=== PATIENT | female | born 1980 | race Caucasian/White ===

== ENCOUNTER 2016-10-05 18:03 | Inpatient (IN) | payer OTHER ==
[~2016-10-05] VITALS: Ht 149.9 cm; Wt 84.1 kg
[2016-10-05 21:15] VITALS: BP 160/82; PULSE 72; RESP 19
[2016-10-05 22:23] VITALS: Ht 149.9 cm; Wt 84.1 kg
[2016-10-05] MEDS: morphine 4 MG/ML VIAL IV PRN (23:07)
[2016-10-05] MEDS: SOD CHLORIDE 0.9% 1,000 ML IV SCH (23:20)
[2016-10-05] MEDS ORDERED: HYDR-906 PO (23:29)
[2016-10-05] MEDS ORDERED: HYDR12.53 PO (23:29)
[2016-10-05] MEDS ORDERED: TAMS0.4C2 PO (23:29)
[2016-10-06] VITALS: BP 140/84
[2016-10-06] MEDS: ONDANSETRON 4 MG INJ IV PRN (00:56)
[2016-10-06 01:53] LABS: BASOPHIL # 0.1 10^3/ul (0.0-0.1); BASOPHILS % 0.8 % (0.0-2.0); EOSINOPHILS # 0.2 10^3/ul (0.0-0.5); EOSINOPHILS % 1.6 % (0.0-7.0); HEMATOCRIT 39.1 % (37.0-47.0); LYMPHOCYTES # 3.1 10^3/ul (0.8-2.9); LYMPHOCYTES % 28.4 % (15.0-51.0); MEAN CORPUSCULAR HEMOGLOBIN 25.2 pg (29.0-33.0); MEAN CORPUSCULAR HGB CONC 33.2 g/dl (32.0-37.0); MEAN PLATELET VOLUME 10.3 fl (7.4-10.4); MONOCYTE # 0.7 10^3/ul (0.3-0.9); MONOCYTES % 6.6 % (0.0-11.0); NEUTROPHIL # 6.7 10^3/ul (1.6-7.5); NEUTROPHILS % 62.6 % (39.0-77.0); PLATELET COUNT 250 10^3/UL (140-440); RED BLOOD COUNT 5.14 10^6/ul (4.20-5.40); RED CELL DISTRIBUTION WIDTH 14.4 % (11.5-14.5); UNCORRECTED WBC 10.7 10^3/ul (4.8-10.8); WHITE BLOOD COUNT 10.7 10^3/ul (4.8-10.8)
[2016-10-06 01:57] LABS: CONDITION 1; LH ANALYZER COMMENTS 1
[2016-10-06 02:07] LABS: ADD UMIC YES; URINE BILIRUBIN (Dip) NEGATIVE (NEGATIVE); URINE BLOOD (Dip) 2+ (NEGATIVE); URINE COLOR LT. YELLOW (YELLOW); URINE GLUCOSE (Dip) NEGATIVE (NEGATIVE); URINE KETONES (Dip) NEGATIVE (NEGATIVE); URINE LEUKOCYTE ESTERASE (Dip) 3+ (NEGATIVE); URINE NITRITE (Dip) NEGATIVE (NEGATIVE); URINE TOTAL PROTEIN (Dip) NEGATIVE (NEGATIVE); URINE UROBILINOGEN (Dip) 0.2 E.U./dL (0.1-1.0)
[2016-10-06 02:14] LABS: BACTERIA,URINE MANY; SQUAMOUS EPITHELIAL CELL,UR MANY
[2016-10-06 02:28] LABS: ALBUMIN 3.8 g/dl (3.3-4.9); POTASSIUM 3.6 mmol/L (3.5-5.1)
[2016-10-06 02:30] LABS: BILIRUBIN,INDIRECT 0.3 mg/dl (0-1.1); BILIRUBIN,TOTAL 0.3 mg/dl (0.2-1.3); CREATININE 0.67 mg/dl (0.44-1.00)
[2016-10-06 02:31] LABS: ALBUMIN/GLOBULIN RATIO 1.26; CALCIUM 8.6 mg/dl (8.4-10.2); PHOSPHORUS 4.1 mg/dl (2.5-4.9); TOTAL PROTEIN 6.8 g/dl (6.1-8.1)
[2016-10-06 02:32] LABS: MAGNESIUM 1.8 mg/dl (1.7-2.5)
[2016-10-06] MEDS: ACETAMINOPHEN 325 MG TAB PO PRN ×2 (04:14→20:16)
[2016-10-06] MEDS: morphine 4 MG/ML VIAL IV PRN (05:38)
[2016-10-06] MEDS: SOD CHLORIDE 0.9% 1,000 ML IV SCH ×3 (06:55→22:23)
[2016-10-06 07:42] VITALS: BP 146/87; RESP 19
[2016-10-06] MEDS: HYDROCHLOROTHIAZIDE 12.5 MG CAP PO SCH (10:06)
[2016-10-06] MEDS: HEPARIN 5,000 UNIT/0.5 ML SYG SC SCH ×2 (10:53→20:21)
[2016-10-06] MEDS: CEFEPIME 2GM/50 ML (PMX) 50 ML IVPB SCH ×2 (11:50→21:25)
[2016-10-06 12:37] LABS: CHOL/HDL RATIO 3.5 RATIO
--- NOTE | 2016-10-06 14:05 | HP ---
DATE OF ADMISSION: 10/05/2016 CHIEF COMPLAINT: Left flank pain. HISTORY OF PRESENT ILLNESS: The patient is a 35-year-old female with a history of hypertension and probable history of kidney stones, ____who presented to an outside hospital with the chief complain t of left flank pain. She states the pain has been going on for about 4 days. She denies ____, n ausea, vomiting, chest pain or shortness of breath. CT abdomen and pelvis ____ 7 mm obstructing sto ne in the right ____ with mild hydronephrosis ____. Also, there was a non-obstructive 15 mm stone in the mid-pole of the right kidney. Also noted on the CAT scan was a bilateral medullary nephrocal cinosis. Again, the patient was transferred to [facility] for a ____ REVIEW OF SYSTEMS: ____ PAST MEDICAL HISTORY: As per HPI. SOCIAL HISTORY: Negative for alcohol or illicit drug use. ALLERGIES: NO KNOWN DRUG ALLERGIES. HOME MEDICATIONS: 1. Flomax. 2. Calhoun. 3. Hydrochlorothiazide. 4. Zocor. 500. PHYSICAL EXAMINATION: VITAL SIGNS: Right arm blood pressure 160/62, heart rate 72, respirations 19, temperature 98.6, O2 saturation 98% on room air. GENERAL: ____ no acute distress. CARDIOVASCULAR: Regular rate and rhythm. ____ LUNGS: Clear. ABDOMEN: There is tenderness of the left flank area. Her abdomen is not distended, no rigidity, th ere are positive bowel sounds. EXTREMITIES: No edema. NEUROLOGIC: No focal deficit. LABORATORY DATA: Basic labs were within acceptable range. IMAGING: CT abdomen and pelvis ____ with results as mentioned in the HPI. IMPRESSION: 1. Obstructing stone in the right UPJ. 2. Left flank pain, probably secondary to above. 3. Hypertension, blood pressure ____. 4. Bilateral ____calcinosis, as noted on the CAT scan. PLAN: She will be put on IV fluids ____ Bilateral medullary nephrocalcinosis ____concerns. The dif ferential diagnosis includes medullary sponge kidney versus right ____ hyperparathyroidism versus __ __. We will consider a nephrology consult. ____ parathyroid hormone and will consider an inpatient nephrology consult. ____ Dictated By: ZOE MAHER/KJ Conf#: [id number] [facility]#: [id number]
--- NOTE | 2016-10-06 14:09 | PN ---
DATE: 10/06/2016 SUBJECTIVE: The patient still having dysuria and subjective fevers. Still waiting to be seen by [facility] urology team. No acute events overnight. OBJECTIVE VITAL SIGNS: Stable. GENERAL: The patient is lying in bed, answering questions, in no acute distress. HEENT: Pupils equal, round, react to light. Extraocular muscles intact. NECK: Supple, no thyromegaly. LUNGS: Clear to auscultation bilaterally. CARDIOVASCULAR: S1, S2 heard. No rubs or gallops. ABDOMEN: She has got positive left CVA tenderness, but otherwise normal bowel sounds. No rebound o r guarding. MUSCULOSKELETAL: No lower extremity edema bilaterally. NEUROLOGIC: No focal deficits. LABORATORY DATA: CMP is normal this morning. The CBC is normal as well. UA shows 3+ leukocyte est erase positive and many bacteria. ASSESSMENT AND PLAN: A 35-year-old female presenting with left flank pain with a prior history of k idney stones who has positive urinary tract infection and findings of 7 mm obstructing stone in the right ureteropelvic junction and right right-sided hydronephrosis. 1. Left flank pain. Paradoxically the patient's stone is found on the right side on her CT scan, s o that is the possible source of the patient's left flank pain. She also has a urinary tract infect ion. Continue antibiotics. Will get a urology consult, IV fluids, pain control medications. Consi yvon checking TSH, A1c, and lipid panel as well. 2. Hypertension. Blood pressure is presently stable. Add hydralazine p.r.n. for systolic greater than 160. 3. High cholesterol. Check a lipid panel. 4. Gastrointestinal prophylaxis. Add proton pump inhibitor. 5. Deep venous thrombosis prophylaxis. Heparin subQ. Dictated By: FATOU SAPP/KJ Conf#: [id number] DID#: [id number]
[2016-10-06] MEDS: KETOROLAC 15 MG INJ IV PRN (15:45)
--- NOTE | 2016-10-06 17:21 | RADRPT ---
PROCEDURE: XR Abdomen. CLINICAL INDICATION: Abdominal pain. History of kidney stones. TECHNIQUE: Supine views of the abdomen were obtained. COMPARISON: None. FINDINGS: The bowel gas pattern is normal. There is no evidence of obstruction. The large bowel is stool-fille d. No free intraperitoneal air is seen. Calcifications are seen projecting over the right renal sha asif. The largest calcification measures 1.5 cm in size. The osseous structures are unremarkable. IMPRESSION: 1. Calcifications projecting over the right renal shadow consistent with the clinical history renal calculi. Further evaluation with a CT renal stone protocol may be of value as clinically warranted . 2. Stool filled large bowel. RPTAT: HPNM Physician Martine Date Time Electronically viewed and signed by Physician Martine on 10/06/2016 17:20 /
[2016-10-06] MEDS: TAMSULOSIN (SR) 0.4 MG CAP PO SCH ×2 (20:16)
[2016-10-06 20:46] VITALS: BP 177/103; RESP 16
[2016-10-06 21:56] VITALS: BP 171/88; RESP 16
[2016-10-06] MEDS: hydrALAzine 20 MG INJ IV PRN (22:22)
[2016-10-07] MEDS: KETOROLAC 15 MG INJ IV PRN (00:33)
[2016-10-07 00:37] VITALS: BP 140/80; PULSE 78; RESP 20
[2016-10-07] MEDS: PANTOPRAZOLE (EC) 40 MG TAB PO SCH (05:29)
[2016-10-07] MEDS: HYDROCODONE/APAP (5/325) TAB PO PRN ×3 (05:29→23:49)
[2016-10-07 05:48] LABS: BASOPHILS % 0.5 % (0.0-2.0); EOSINOPHILS # 0.1 10^3/ul (0.0-0.5); EOSINOPHILS % 1.5 % (0.0-7.0); HEMATOCRIT 40.7 % (37.0-47.0); HEMOGLOBIN 13.6 g/dl (12.0-16.0); LYMPHOCYTES # 3.6 10^3/ul (0.8-2.9); LYMPHOCYTES % 38.4 % (15.0-51.0); MEAN CORPUSCULAR HEMOGLOBIN 25.5 pg (29.0-33.0); MEAN CORPUSCULAR HGB CONC 33.3 g/dl (32.0-37.0); MEAN CORPUSCULAR VOLUME 76.7 fl (82.0-101.0); MEAN PLATELET VOLUME 10.5 fl (7.4-10.4); MONOCYTE # 0.7 10^3/ul (0.3-0.9); MONOCYTES % 7.5 % (0.0-11.0); NEUTROPHIL # 4.9 10^3/ul (1.6-7.5); NEUTROPHILS % 52.1 % (39.0-77.0); PLATELET COUNT 234 10^3/UL (140-440); RED CELL DISTRIBUTION WIDTH 14.6 % (11.5-14.5); UNCORRECTED WBC 9.4 10^3/ul (4.8-10.8); WHITE BLOOD COUNT 9.4 10^3/ul (4.8-10.8)
[2016-10-07 06:00] LABS: CONDITION 1; LH ANALYZER COMMENTS 1
[2016-10-07 06:04] LABS: POTASSIUM 3.8 mmol/L (3.5-5.1)
[2016-10-07 06:06] LABS: CREATININE 0.62 mg/dl (0.44-1.00)
[2016-10-07 06:07] LABS: CALCIUM 8.8 mg/dl (8.4-10.2)
[2016-10-07] MEDS: SOD CHLORIDE 0.9% 1,000 ML IV SCH ×3 (07:00→20:30)
[2016-10-07 08:00] VITALS: BP 139/80; RESP 20
[2016-10-07] MEDS: HYDROCHLOROTHIAZIDE 12.5 MG CAP PO SCH (08:18)
[2016-10-07] MEDS: HEPARIN 5,000 UNIT/0.5 ML SYG SC SCH ×2 (08:26→20:45)
[2016-10-07] MEDS: CEFEPIME 2GM/50 ML (PMX) 50 ML IVPB SCH ×2 (09:17→20:31)
--- NOTE | 2016-10-07 09:56 | CONS ---
DATE OF ADMISSION: 10/05/2016 DATE OF CONSULTATION: 10/06/2016 UROLOGICAL CONSULTATION REQUESTING PHYSICIAN: Dr. Frank Vallecillo Dear Dr. Vallecillo: Thank you for asking me to see this patient in urological consultation. HISTORY OF PRESENT ILLNESS: This is a 35-year-old female who initially presented to the hospital with left flank pain, pain radiating down toward the genital area, urinary urgency. The patient underwent a CT of the abdomen and pelvis. It was reported that she does have a large stone in the right renal pelvis at the ureteropelvic junction, and another stone in the right kidney. However, there were stones in the left kidney and that is where her complaint is. The patient does have a prior history of kidney stones, and she said that she did have one time where the stone was removed through cystoscopy, ureteroscopy, and laser lithotripsy. She does not know the composition of the stones in the past. She is also known to have a history of hypertension and hypercholesterolemia. PAST MEDICAL HISTORY/SURGICAL HISTORY: Includes 2 C-sections. She is a 3, para 3. The first delivery was a vaginal delivery and the last 2 deliveries were C-sections. SOCIAL HISTORY: Smokes. Does not drink any alcohol. There is no history of drug abuse. CURRENT MEDICATIONS: Include: 1. Protonix. 2. Toradol. 3. Hydrochlorothiazide. 4. Cefepime. 5. Heparin subcutaneous. 6. Tylenol. 7. Crook. 8. Tamsulosin. 9. Morphine sulfate. 10. Zofran. 11. IV fluid with sodium chloride. PHYSICAL EXAMINATION: GENERAL: A 35-year-old female. She weighs about 84.1 kg. She is 59 inches tall. VITAL SIGNS: Temperature of 98.1, pulse is 66, respirations 19, blood pressure 146/80. HEAD AND NECK: Unremarkable. There is no cervical adenopathy. HEART: Regular. LUNGS: Clear. ABDOMEN: Obese. She does have a scar from the C-sections in the past. She is tender over the left flank area as well as over to a lesser degree on the right side. PELVIC: No mass and no discharge. EXTREMITIES: Normal. LABORATORY DATA: Her CBC shows a white count of 10.7, hemoglobin is 13.0, hematocrit 39.1. BUN is 10, creatinine 0.67, sodium 141, potassium 3.6, chloride 106, CO2 23. Calcium is 8.6. Urinalysis: 2+ occult blood, 3+ leukocyte esterase, and many bacteria. The review of the report of the CT scan from [place] showed an obstructing 7 mm stone at the right ureteropelvic junction with associated mild right-sided hydronephrosis, nonobstructing 15 mm stone at the mid portion of the right kidney, bilateral medullary nephrocalcinosis. Differential consideration includes medullary sponge kidney, primary hyperparathyroidism, distal RTA, hypervitaminosis D, and hepatic steatosis. IMPRESSION: This patient most likely does have a urinary tract infection with pain on the left side because of the pyelonephritis. The stone on the right side is not causing her any pain according to her, but she has been a little bit tender on that side and there is some hydronephrosis on that side. RECOMMENDATION: To get a KUB, which was done. I ordered the KUB earlier, around noontime today, and they just did it at around 5:30 p.m. The KUB indeed does show the calcification projecting over the right renal shadow consistent with a clinical history of renal calculi; however, on the left side there was no calcification seen. The size of that calcification seen over the right side is about 15mm. I also did order for the patient to have a urine culture just to document if there is any urine infection or pyelonephritis. The patient will have to be treated first for infection, and once the infection is treated then one could take care of the kidney stone, and most likely she will need to undergo ESWL for that kidney stone. I will follow her urological problem with you. I do thank you for allowing me to help in her care. Dictated By: SANDY PHAM/KJ Conf#: [id number] DID#: [id number] MTDD
--- NOTE | 2016-10-07 10:02 | PN ---
Date/Time of Note Date/Time of Note DATE: 10/07/16 TIME: 09:59 Assessment/Plan VTE Prophylaxis VTE Prophylaxis Intervention: heparin Lines/Catheters IV C[facility]ter Type (from [facility]): Peripheral IV Urinary Cath still in place: No Assessment/Plan Chief Complaint/Hosp Course ASSESSMENT AND PLAN: 35-year-old female presenting with left flank pain with a prior history of kidney stones who has positive urinary tract infection and findings of 7 mm obstructing stone in the right ureteropelvic junction and right right-sided hydronephrosis. 1. Left flank pain. Paradoxically the patient's stone is found on the right side on her CT scan, so that is the possible source of the patient's left flank pain. She also has a urinary tract infection. - Continue antibiotics, f/u urology consult rec's - want to continue to strain the urine. - continue IV fluids, pain control medications. 2. Hypertension. Blood pressure is presently stable. - hydralazine p.r.n. for systolic greater than 160. 3. High cholesterol - start Tricor 4. Gastrointestinal prophylaxis -Proton pump inhibitor. 5. Deep venous thrombosis prophylaxis. Heparin subQ. Problems: Subjective 24 Hr Interval Summary Free Text/Dictation Pt with less abd pain, no dysuria. Appears to be passing urinary sediments now. Exam/Review of Systems Vital Signs Vitals Vital Signs Date Time Temp Pulse Resp B/P Pulse Ox O2 Delivery O2 Flow Rate FiO2 10/07/16 08:00 98.6 71 20 139/80 96 10/07/16 00:37 Room Air Intake and Output 10/06/16 10/06/16 10/07/16 15:00 23:00 07:00 Intake Total 1285 ml 950 ml Output Total 2400 ml 1000 ml Balance -1115 ml -50 ml Exam GENERAL: The patient is lying in bed, answering questions, in no acute distress. HEENT: Pupils equal, round, react to light. Extraocular muscles intact. NECK: Supple, no thyromegaly. LUNGS: Clear to auscultation bilaterally. CARDIOVASCULAR: S1, S2 heard. No rubs or gallops. ABDOMEN: She has got positive left CVA tenderness, but otherwise normal bowel sounds. No rebound or guarding. MUSCULOSKELETAL: No lower extremity edema bilaterally. NEUROLOGIC: No focal deficits. Results Result Diagram: 2/18/17 0450 2/18/17 0450 Results 24 hrs Laboratory Tests Test 10/06/16 12:05 10/07/16 04:50 Cholesterol Level 200 Cholesterol/HDL Ratio 3.5 HDL Cholesterol 56 Hemoglobin A1c 5.9 LDL Cholesterol, Calculated 106 Triglycerides Level 192 H Anion Gap 16 Basophils # 0.0 Basophils % 0.5 Blood Morphology Comment Blood Urea Nitrogen 13 Calcium Level 8.8 Carbon Dioxide Level 22 Chloride Level 106 Creatinine 0.62 Eosinophils # 0.1 Eosinophils % 1.5 Glucose Level 91 Hematocrit 40.7 Hemoglobin 13.6 Lymphocytes # 3.6 H Lymphocytes % 38.4 Mean Corpuscular Hemoglobin 25.5 L Mean Corpuscular Hemoglobin Concent 33.3 Mean Corpuscular Volume 76.7 L Mean Platelet Volume 10.5 H Monocytes # 0.7 Monocytes % 7.5 Neutrophils # 4.9 Neutrophils % 52.1 Nucleated Red Blood Cells # 0.0 Nucleated Red Blood Cells % 0.0 Platelet Count 234 Potassium Level 3.8 Red Blood Count 5.30 Red Cell Distribution Width 14.6 H Sodium Level 140 White Blood Count 9.4 Medications Medications Current Medications Morphine Sulfate (morphine) 4 mg Q4H PRN IV PAIN Last administered on 05:38; Admin Dose 4 MG; Start 10/05/16 at 23:00 Ondansetron HCl 4 mg 4 mg Q6H PRN IV NAUSEA AND/OR VOMITING Last administered on 10/06/16 00:56; Admin Dose 4 MG; Start 10/05/16 at 23:00 Sodium Chloride (NS) 1,000 ml @ 125 mls/hr Q8H IV Last administered on 22:23; Admin Dose 125 MLS/HR; Start 10/05/16 at 23:00 Hydrochlorothiazide (Hydrochlorothiazide) 12.5 mg DAILY PO Last administered on 10/07/16 08:18; Admin Dose 12.5 MG; Start 10/06/16 at 09:00 Acetaminophen/ Hydrocodone Bitart ([place] (5/325)) 1 tab Q6H PRN PO PAIN Last administered on 10/07/16 05:29; Admin Dose 1 TAB; Start 10/06/16 at 00:00 Tamsulosin HCl (Flomax) 0.4 mg DAILY@21 PO Last administered on 10/06/16 20:16 ; Admin Dose 0.4 MG; Start 10/06/16 at 00:00 Acetaminophen 650 mg 650 mg Q6H PRN PO PAIN AND OR ELEVATED TEMP Last administered on 10/06/16 20:16; Admin Dose 650 MG; Start 10/06/16 at 04:30 Cefepime HCl (Maxipime 2gm/50 ml (Pmx)) 50 ml @ 100 mls/hr Q12 IVPB Last administered on 10/07/16 09:17; Admin Dose 100 MLS/HR; Start 10/06/16 at 09:00 Pantoprazole (Protonix Tab) 40 mg DAILY@06 PO Last administered on 10/07/16 05 :29; Admin Dose 40 MG; Start 10/07/16 at 06:00 Heparin Sodium (Porcine) (Heparin (5000 Units/0.5 ml)) 5,000 unit BID SC Last administered on 10/07/16 08:26; Admin Dose 5,000 UNIT; Start 10/06/16 at 09:00 Ketorolac Tromethamine (Toradol) 15 mg Q8H PRN IV PAIN LEVEL 7-10 Last administered on 10/07/16 00:33; Admin Dose 15 MG; Start 10/06/16 at 15:30; Stop 10/09/16 at 15:29 Hydralazine HCl (Apresoline) 10 mg Q4H PRN IV for sbp greater than 160 Last administered on 10/06/16 22:22; Admin Dose 10 MG; Start 10/06/16 at 22:30 Fenofibrate (Tricor) 48 mg DAILY PO ; Start 10/08/16 at 09:00; Status FATOU LUNA Oct 07, 2016 10:02
[2016-10-07] MEDS: FENOFIBRATE 48 MG TAB PO SCH (11:35)
--- NOTE | 2016-10-07 11:49 | PN ---
DATE: 10/07/2016 SUBJECTIVE: Left flank pain. The patient does have a right renal stone. The patient still has lucian e pain on the left side. OBJECTIVE VITAL SIGNS: Her temperature is 98.6, respiration is 20, pulse 71, blood pressure 139/80. ABDOMEN: She is tender in the left flank area. The right flank is not tender. LABORATORY DATA: Her urine culture from 10/06/2016 is no gross 24 hours; however, one has to rememb er that she was already on antibiotic when the urine culture was taken. The CBC shows a white count of 9.4, hemoglobin 13.6, hematocrit 40.7. BUN is 13, creatinine 0.62. IMPRESSION: The patient had a urinary tract infection with pyelonephritis and her pain on the left side is most likely from the infection rather than a stone. The stone on the right side will need t o be treated later on once the infection is treated. Dictated By: SANDY PHAM/KJ Conf#: [id number] DID#: [id number]
[2016-10-07 20:19] VITALS: BP 184/101; RESP 16
[2016-10-07] MEDS: TAMSULOSIN (SR) 0.4 MG CAP PO SCH (20:31)
[2016-10-08] MEDS: HYDROCODONE/APAP (5/325) TAB PO PRN ×3 (05:17→23:54)
[2016-10-08 06:08] LABS: POTASSIUM 3.7 mmol/L (3.5-5.1)
[2016-10-08 06:10] LABS: CREATININE 0.64 mg/dl (0.44-1.00)
[2016-10-08 06:11] LABS: CALCIUM 8.8 mg/dl (8.4-10.2)
[2016-10-08] MEDS: PANTOPRAZOLE (EC) 40 MG TAB PO SCH (06:12)
[2016-10-08] MEDS: SOD CHLORIDE 0.9% 1,000 ML IV SCH ×3 (06:13→23:00)
[2016-10-08 06:45] LABS: BASOPHILS % 0.4 % (0.0-2.0); EOSINOPHILS # 0.2 10^3/ul (0.0-0.5); EOSINOPHILS % 2.2 % (0.0-7.0); HEMATOCRIT 39.2 % (37.0-47.0); HEMOGLOBIN 13.3 g/dl (12.0-16.0); LYMPHOCYTES % 39.6 % (15.0-51.0); MEAN CORPUSCULAR HEMOGLOBIN 25.9 pg (29.0-33.0); MEAN CORPUSCULAR HGB CONC 33.9 g/dl (32.0-37.0); MEAN CORPUSCULAR VOLUME 76.4 fl (82.0-101.0); MONOCYTE # 0.9 10^3/ul (0.3-0.9); MONOCYTES % 9.4 % (0.0-11.0); NEUTROPHIL # 4.8 10^3/ul (1.6-7.5); NEUTROPHILS % 48.4 % (39.0-77.0); PLATELET COUNT 241 10^3/UL (140-440); RED BLOOD COUNT 5.13 10^6/ul (4.20-5.40)
[2016-10-08 07:10] LABS: CONDITION 1; LH ANALYZER COMMENTS 1
[2016-10-08 07:51] VITALS: BP 144/95; RESP 20
[2016-10-08] MEDS: FENOFIBRATE 48 MG TAB PO SCH (08:31)
[2016-10-08] MEDS: CEFEPIME 2GM/50 ML (PMX) 50 ML IVPB SCH ×2 (08:31→20:27)
[2016-10-08] MEDS: HYDROCHLOROTHIAZIDE 12.5 MG CAP PO SCH (08:31)
[2016-10-08] MEDS: HEPARIN 5,000 UNIT/0.5 ML SYG SC SCH ×2 (08:38→21:30)
--- NOTE | 2016-10-08 10:28 | PN ---
Date/Time of Note Date/Time of Note DATE: 10/08/16 TIME: 10:28 Assessment/Plan VTE Prophylaxis VTE Prophylaxis Intervention: heparin Lines/Catheters IV Catheter Type (from [facility]): Peripheral IV Urinary Cath still in place: No Assessment/Plan Chief Complaint/Hosp Course ASSESSMENT AND PLAN: 35-year-old female presenting with left flank pain with a prior history of kidney stones who has positive urinary tract infection and findings of 7 mm obstructing stone in the right ureteropelvic junction and right right-sided hydronephrosis. 1. Left flank pain. Paradoxically the patient's stone is found on the right side on her CT scan, so that is the possible source of the patient's left flank pain. She also has a urinary tract infection. - Continue antibiotics, f/u urology consult rec's - continue to strain the urine. - continue IV fluids, pain control medications. 2. Hypertension. Blood pressure is presently stable. - hydralazine p.r.n. for systolic greater than 160. 3. High cholesterol - start Tricor 4. Gastrointestinal prophylaxis -Proton pump inhibitor. 5. Deep venous thrombosis prophylaxis. Heparin subQ. Problems: Subjective 24 Hr Interval Summary Free Text/Dictation Pt still with some flank pain, no documented fevers. Still urinary sediments. Exam/Review of Systems Vital Signs Vitals Vital Signs Date Time Temp Pulse Resp B/P Pulse Ox O2 Delivery O2 Flow Rate FiO2 10/08/16 07:51 98.7 80 20 144/95 97 10/07/16 00:37 Room Air Intake and Output 10/07/16 10/07/16 10/08/16 15:00 23:00 07:00 Intake Total 2005 ml 400 ml Output Total 1050 ml 1000 ml Balance 955 ml -600 ml Exam GENERAL: The patient is lying in bed, answering questions, in no acute distress. HEENT: Pupils equal, round, react to light. Extraocular muscles intact. NECK: Supple, no thyromegaly. LUNGS: Clear to auscultation bilaterally. CARDIOVASCULAR: S1, S2 heard. No rubs or gallops. ABDOMEN: less left CVA tenderness, but otherwise normal bowel sounds. No rebound or guarding. MUSCULOSKELETAL: No lower extremity edema bilaterally. NEUROLOGIC: No focal deficits. Results Result Diagram: 10/08/1652010/08/16520 Results 24 hrs Laboratory Tests Test 10/08/16 05:21 Anion Gap 14 Basophils # 0.0 Basophils % 0.4 Blood Morphology Comment Blood Urea Nitrogen 12 Calcium Level 8.8 Carbon Dioxide Level 24 Chloride Level 105 Creatinine 0.64 Eosinophils # 0.2 Eosinophils % 2.2 Glucose Level 97 Hematocrit 39.2 Hemoglobin 13.3 Lymphocytes # 4.0 H Lymphocytes % 39.6 Mean Corpuscular Hemoglobin 25.9 L Mean Corpuscular Hemoglobin Concent 33.9 Mean Corpuscular Volume 76.4 L Mean Platelet Volume 11.0 H Monocytes # 0.9 Monocytes % 9.4 Neutrophils # 4.8 Neutrophils % 48.4 Nucleated Red Blood Cells # 0.0 Nucleated Red Blood Cells % 0.0 Platelet Count 241 Potassium Level 3.7 Red Blood Count 5.13 Red Cell Distribution Width 15.0 H Sodium Level 139 White Blood Count 10.0 Medications Medications Current Medications Morphine Sulfate (morphine) 4 mg Q4H PRN IV PAIN Last administered on 05:38; Admin Dose 4 MG; Start 10/05/16 at 23:00 Ondansetron HCl 4 mg 4 mg Q6H PRN IV NAUSEA AND/OR VOMITING Last administered on 10/06/16 00:56; Admin Dose 4 MG; Start 10/05/16 at 23:00 Sodium Chloride (NS) 1,000 ml @ 125 mls/hr Q8H IV Last administered on 06:13; Admin Dose 125 MLS/HR; Start 10/05/16 at 23:00 Hydrochlorothiazide (Hydrochlorothiazide) 12.5 mg DAILY PO Last administered on 10/08/16 08:31; Admin Dose 12.5 MG; Start 10/06/16 at 09:00 Acetaminophen/ Hydrocodone Bitart ([place] (5/325)) 1 tab Q6H PRN PO PAIN Last administered on 10/08/16 05:17; Admin Dose 1 TAB; Start 10/06/16 at 00:00 Tamsulosin HCl (Flomax) 0.4 mg DAILY@21 PO Last administered on 10/07/16 20:31 ; Admin Dose 0.4 MG; Start 10/06/16 at 00:00 Acetaminophen 650 mg 650 mg Q6H PRN PO PAIN AND OR ELEVATED TEMP Last administered on 10/06/16 20:16; Admin Dose 650 MG; Start 10/06/16 at 04:30 Cefepime HCl (Maxipime 2gm/50 ml (Pmx)) 50 ml @ 100 mls/hr Q12 IVPB Last administered on 10/08/16 08:31; Admin Dose 100 MLS/HR; Start 10/06/16 at 09:00 Pantoprazole (Protonix Tab) 40 mg DAILY@06 PO Last administered on 10/08/16 06 :12; Admin Dose 40 MG; Start 10/07/16 at 06:00 Heparin Sodium (Porcine) (Heparin (5000 Units/0.5 ml)) 5,000 unit BID SC Last administered on 10/08/16 08:38; Admin Dose 5,000 UNIT; Start 10/06/16 at 09:00 Ketorolac Tromethamine (Toradol) 15 mg Q8H PRN IV PAIN LEVEL 7-10 Last administered on 10/07/16 00:33; Admin Dose 15 MG; Start 10/06/16 at 15:30; Stop 10/09/16 at 15:29 Hydralazine HCl (Apresoline) 10 mg Q4H PRN IV for sbp greater than 160 Last administered on 10/06/16 22:22; Admin Dose 10 MG; Start 10/06/16 at 22:30 Fenofibrate (Tricor) 48 mg DAILY PO Last administered on 10/08/16 08:31; Admin Dose 48 MG; Start 10/07/16 at 10:00 FATOU PHAN Oct 08, 2016 10:28
--- NOTE | 2016-10-08 13:31 | PN ---
DATE: SUBJECTIVE: Patient has left flank pain and, to a lesser degree, right flank pain. She does have pyelonephritis, and she has a stone in the right renal pelvis. She, however, described her pain to be less yesterday. OBJECTIVE: VITAL SIGNS: Temperature is 98.7, pulse is 80, respiration 20, blood pressure 144/95. ABDOMEN: Soft. She still has some left flank tenderness. LABORATORY DATA: Her CBC shows a white count of 10.0, hemoglobin 13.3, hematocrit 39.2. The BUN is 12, creatinine 0.64. Urine culture, she has Lidia albicans. IMPRESSION: Right renal stone. Left flank tenderness. Most likely, patient does have pyelonephritis, and the patient is already on cefepime, and we will add voriconazole to treat the Lidia albicans. Dictated By: SANDY PHAM/KJ Conf#: [id number] DID#: [id number] MTDD
[2016-10-08 20:15] VITALS: BP 191/88; RESP 16
[2016-10-08] MEDS: VORICONAZOLE 200 MG TAB PO SCH (20:27)
[2016-10-08] MEDS: TAMSULOSIN (SR) 0.4 MG CAP PO SCH (20:27)
[2016-10-08] MEDS: morphine 4 MG/ML VIAL IV PRN (20:33)
[2016-10-08 23:13] VITALS: BP 184/100; PULSE 85; RESP 20
[2016-10-08] MEDS: hydrALAzine 20 MG INJ IV PRN (23:21)
[2016-10-08 23:54] VITALS: BP 180/93; PULSE 93
[2016-10-09 00:35] VITALS: BP 175/87
[2016-10-09] MEDS: ONDANSETRON 4 MG INJ IV PRN (00:40)
[2016-10-09] MEDS: SOD CHLORIDE 0.9% 1,000 ML IV SCH ×3 (02:09→23:00)
[2016-10-09 02:10] VITALS: BP 173/84
[2016-10-09 04:46] VITALS: BP 174/89; RESP 16
[2016-10-09] MEDS: HYDROCODONE/APAP (5/325) TAB PO PRN ×2 (04:55→11:11)
[2016-10-09 06:04] LABS: POTASSIUM 3.9 mmol/L (3.5-5.1)
[2016-10-09 06:06] LABS: CREATININE 0.56 mg/dl (0.44-1.00)
[2016-10-09] MEDS: PANTOPRAZOLE (EC) 40 MG TAB PO SCH (06:07)
[2016-10-09 08:40] VITALS: BP 157/81; PULSE 73
[2016-10-09] MEDS: FENOFIBRATE 48 MG TAB PO SCH (08:42)
[2016-10-09] MEDS: CEFEPIME 2GM/50 ML (PMX) 50 ML IVPB SCH ×2 (08:42→20:49)
[2016-10-09] MEDS: HYDROCHLOROTHIAZIDE 12.5 MG CAP PO SCH (08:42)
[2016-10-09] MEDS: VORICONAZOLE 200 MG TAB PO SCH ×2 (08:42→20:49)
[2016-10-09] MEDS: HEPARIN 5,000 UNIT/0.5 ML SYG SC SCH ×2 (09:04→20:57)
[2016-10-09 10:52] LABS: HEMATOCRIT 40.7 % (37.0-47.0); HEMOGLOBIN 13.2 g/dl (12.0-16.0); RED BLOOD COUNT 5.37 10^6/ul (4.20-5.40); WHITE BLOOD COUNT 10.8 10^3/ul (4.8-10.8)
[2016-10-09 10:53] LABS: BASOPHILS % 0.4 % (0.0-2.0); EOSINOPHILS % 1.2 % (0.0-7.0); LYMPHOCYTES % 31.3 % (15.0-51.0); MEAN CORPUSCULAR HEMOGLOBIN 24.6 pg (29.0-33.0); MEAN CORPUSCULAR HGB CONC 32.4 g/dl (32.0-37.0); MEAN CORPUSCULAR VOLUME 75.8 fl (82.0-101.0); MEAN PLATELET VOLUME 11.9 fl (7.4-10.4); MONOCYTES % 7.1 % (0.0-11.0); NEUTROPHILS % 59.6 % (39.0-77.0); PLATELET COUNT 282 10^3/UL (140-440); RED CELL DISTRIBUTION WIDTH 14.1 % (11.5-14.5)
[2016-10-09 10:54] LABS: EOSINOPHILS # 0.1 10^3/ul (0.0-0.5); LYMPHOCYTES # 3.4 10^3/ul (0.8-2.9); MONOCYTE # 0.8 10^3/ul (0.3-0.9); NEUTROPHIL # 6.5 10^3/ul (1.6-7.5)
--- NOTE | 2016-10-09 13:41 | PN ---
Date/Time of Note Date/Time of Note DATE: 10/09/16 TIME: 13:33 Assessment/Plan VTE Prophylaxis VTE Prophylaxis Intervention: heparin Lines/Catheters IV Catheter Type (from [facility] Peripheral IV Urinary Cath still in place: No Assessment/Plan Assessment/Plan 35-year-old female presenting with left flank pain with a prior history of kidney stones who has positive urinary tract infection and findings of 7 mm obstructing stone in the right ureteropelvic junction and right right-sided hydronephrosis. 1. Left flank pain 2/2 Pyelonephritis 2/2 Lidia * Cannot r/o underlying bacterial pathogen 2. R sided kidney stone, non obstructing 3. Hypertension: suboptimal control 4. Hypertriglyceridemia 5. Obesity with BMI 37.4 6. Significant Constipation PLAN: Titrate antihypertensives for better control Continue abx and antifungals Continue PRN pain control/ antiemetics/ antipyretics/ supportive care Continue low bernard diet / stool softeners Possible d/c in am if pain is improved. Gastrointestinal prophylaxis -Proton pump inhibitor. Deep venous thrombosis prophylaxis. Heparin subQ. Subjective 24 Hr Interval Summary Free Text/Dictation Patient seen and examined. still with bilateral flank pain Exam/Review of Systems Vital Signs Vitals Vital Signs Date Time Temp Pulse Resp B/P Pulse Ox O2 Delivery O2 Flow Rate FiO2 10/09/16 08:40 98.8 73 157/81 98 Room Air 10/09/16 04:46 16 Intake and Output 10/08/16 10/08/16 10/09/16 15:00 23:00 07:00 Intake Total 2540 ml 1700 ml Output Total 1750 ml 1200 ml Balance 790 ml 500 ml Exam GENERAL: The patient is lying in bed, answering questions, in no acute distress. HEENT: Pupils equal, round, react to light. Extraocular muscles intact. NECK: Supple, no thyromegaly. LUNGS: Clear to auscultation bilaterally. CARDIOVASCULAR: S1, S2 heard. No rubs or gallops. ABDOMEN: no flank tenderness elicited, but patient continues to report pain. otherwise normal bowel sounds. No rebound or guarding. MUSCULOSKELETAL: No lower extremity edema bilaterally. NEUROLOGIC: No focal deficits. Results Result Diagram: 10/09/16 0520 10/09/16 0520 Results 24 hrs Laboratory Tests Test 10/09/16 05:20 Anion Gap 15 Basophils # 0.0 Basophils % 0.4 Blood Urea Nitrogen 9 Calcium Level 9.0 Carbon Dioxide Level 24 Chloride Level 104 Creatinine 0.56 Eosinophils # 0.1 Eosinophils % 1.2 Glucose Level 103 Hematocrit 40.7 Hemoglobin 13.2 Lymphocytes # 3.4 H Lymphocytes % 31.3 Mean Corpuscular Hemoglobin 24.6 L Mean Corpuscular Hemoglobin Concent 32.4 Mean Corpuscular Volume 75.8 L Mean Platelet Volume 11.9 H Monocytes # 0.8 Monocytes % 7.1 Neutrophils # 6.5 Neutrophils % 59.6 Nucleated Red Blood Cells # 0.0 Nucleated Red Blood Cells % 0.0 Platelet Count 282 Potassium Level 3.9 Red Blood Count 5.37 Red Cell Distribution Width 14.1 Sodium Level 139 White Blood Count 10.8 Medications Medications Current Medications Morphine Sulfate (morphine) 4 mg Q4H PRN IV PAIN Last administered on 20:33; Admin Dose 4 MG; Start 10/05/16 at 23:00 Ondansetron HCl 4 mg 4 mg Q6H PRN IV NAUSEA AND/OR VOMITING Last administered on 10/09/16 00:40; Admin Dose 4 MG; Start 10/05/16 at 23:00 Sodium Chloride (NS) 1,000 ml @ 125 mls/hr Q8H IV Last administered on 02:09; Admin Dose 125 MLS/HR; Start 10/05/16 at 23:00 Hydrochlorothiazide (Hydrochlorothiazide) 12.5 mg DAILY PO Last administered on 10/09/16 08:42; Admin Dose 12.5 MG; Start 10/06/16 at 09:00 Acetaminophen/ Hydrocodone Bitart ([place] (5/325)) 1 tab Q6H PRN PO PAIN Last administered on 10/09/16 11:11; Admin Dose 1 TAB; Start 10/06/16 at 00:00 Tamsulosin HCl (Flomax) 0.4 mg DAILY@21 PO Last administered on 10/08/16 20:27 ; Admin Dose 0.4 MG; Start 10/06/16 at 00:00 Acetaminophen 650 mg 650 mg Q6H PRN PO PAIN AND OR ELEVATED TEMP Last administered on 10/06/16 20:16; Admin Dose 650 MG; Start 10/06/16 at 04:30 Cefepime HCl (Maxipime 2gm/50 ml (Pmx)) 50 ml @ 100 mls/hr Q12 IVPB Last administered on 10/09/16 08:42; Admin Dose 100 MLS/HR; Start 10/06/16 at 09:00 Pantoprazole (Protonix Tab) 40 mg DAILY@06 PO Last administered on 10/09/16 06 :07; Admin Dose 40 MG; Start 10/07/16 at 06:00 Heparin Sodium (Porcine) (Heparin (5000 Units/0.5 ml)) 5,000 unit BID SC Last administered on 10/09/16 09:04; Admin Dose 5,000 UNIT; Start 10/06/16 at 09:00 Ketorolac Tromethamine (Toradol) 15 mg Q8H PRN IV PAIN LEVEL 7-10 Last administered on 10/07/16 00:33; Admin Dose 15 MG; Start 10/06/16 at 15:30; Stop 10/09/16 at 15:29 Hydralazine HCl (Apresoline) 10 mg Q4H PRN IV for sbp greater than 160 Last administered on 10/08/16 23:21; Admin Dose 10 MG; Start 10/06/16 at 22:30 Fenofibrate (Tricor) 48 mg DAILY PO Last administered on 10/09/16 08:42; Admin Dose 48 MG; Start 10/07/16 at 10:00 Voriconazole (Vfend) 200 mg BID PO Last administered on 10/09/16 08:42; Admin Dose 200 MG; Start 10/08/16 at 21:00 Hydralazine HCl (Apresoline) 25 mg Q8 PO Last administered on 10/09/16 06:07; Admin Dose 25 MG; Start 10/08/16 at 23:30 DENAE CLARKE Oct 09, 2016 13:41
[2016-10-09] MEDS ORDERED: MAGNESIUM CITRATE 300 ML BTL PO ONE (14:00)
[2016-10-09] MEDS: ACETAMINOPHEN 325 MG TAB PO PRN (14:43)
[2016-10-09 19:00] VITALS: BP 167/87; RESP 17
--- NOTE | 2016-10-09 19:20 | PN ---
DATE: SUBJECTIVE: The patient does have bilateral flank pain, more on the left side than the right side. She also has a stone in the right kidney and what apparently is a left pyelonephritis. She denies any burning on urination. There is no hematuria. No urgency or urgency incontinence. OBJECTIVE: VITAL SIGNS: Temperature is 98.8, pulse is 73, respirations 16, and blood pressure 157/81. ABDOMEN: Soft. There is bilateral flank tenderness, left side more than on the right side. LABORATORY DATA: Her CBC shows a white count of 10.8, hemoglobin 13.2, hematocrit 40.7. BUN is 9, creatinine 0.56. Electrolytes are normal. The urine culture is showing Lidia albicans. The rosalee ent is on voriconazole for the urinary tract infection. PLAN: Continue present treatment. Dictated By: SANDY PHAM/KJ Conf#: [id number] DID#: [id number] CC: FATOU PHAN;*End*
[2016-10-09] MEDS: DOCUSATE SODIUM 100 MG CAP PO SCH (20:48)
[2016-10-09] MEDS: TAMSULOSIN (SR) 0.4 MG CAP PO SCH (20:48)
[2016-10-10] MEDS: SOD CHLORIDE 0.9% 1,000 ML IV SCH ×2 (02:02→06:18)
[2016-10-10] MEDS: HYDROCODONE/APAP (5/325) TAB PO PRN (02:04)
[2016-10-10] MEDS: PANTOPRAZOLE (EC) 40 MG TAB PO SCH (06:03)
[2016-10-10 06:56] LABS: BASOPHILS % 0.5 % (0.0-2.0); EOSINOPHILS # 0.2 10^3/ul (0.0-0.5); EOSINOPHILS % 1.7 % (0.0-7.0); HEMATOCRIT 38.9 % (37.0-47.0); HEMOGLOBIN 13.2 g/dl (12.0-16.0); LYMPHOCYTES # 3.3 10^3/ul (0.8-2.9); LYMPHOCYTES % 31.8 % (15.0-51.0); MEAN CORPUSCULAR HEMOGLOBIN 25.7 pg (29.0-33.0); MEAN CORPUSCULAR HGB CONC 33.8 g/dl (32.0-37.0); MEAN CORPUSCULAR VOLUME 76.2 fl (82.0-101.0); MONOCYTE # 0.9 10^3/ul (0.3-0.9); MONOCYTES % 8.7 % (0.0-11.0); NEUTROPHILS % 57.3 % (39.0-77.0); PLATELET COUNT 237 10^3/UL (140-440); RED BLOOD COUNT 5.11 10^6/ul (4.20-5.40); RED CELL DISTRIBUTION WIDTH 15.1 % (11.5-14.5); UNCORRECTED WBC 10.4 10^3/ul (4.8-10.8); WHITE BLOOD COUNT 10.4 10^3/ul (4.8-10.8)
[2016-10-10 07:00] LABS: POTASSIUM 4.2 mmol/L (3.5-5.1)
[2016-10-10 07:03] LABS: CREATININE 0.64 mg/dl (0.44-1.00)
[2016-10-10 07:19] LABS: CONDITION 1; LH ANALYZER COMMENTS 1
[2016-10-10 08:44] VITALS: BP 148/78; RESP 20
[2016-10-10] MEDS: DOCUSATE SODIUM 100 MG CAP PO SCH (08:51)
[2016-10-10] MEDS: FENOFIBRATE 48 MG TAB PO SCH (08:51)
[2016-10-10] MEDS: CEFEPIME 2GM/50 ML (PMX) 50 ML IVPB SCH (08:51)
[2016-10-10] MEDS: HEPARIN 5,000 UNIT/0.5 ML SYG SC SCH (08:51)
[2016-10-10] MEDS: VORICONAZOLE 200 MG TAB PO SCH (08:52)
[2016-10-10] MEDS ORDERED: HYDROCHLOROTHIAZIDE 25 MG TAB PO SCH (09:00)
[2016-10-10] MEDS ORDERED: FENO48TA4 PO (12:13)
[2016-10-10] MEDS ORDERED: DOCU-216 PO (12:13)
[2016-10-10] MEDS ORDERED: HYD25 PO (12:13)
[2016-10-10] MEDS ORDERED: HYDR-3498 PO (12:13)
[2016-10-10] MEDS ORDERED: VORI200T9 PO (12:13)
[2016-10-10] MEDS ORDERED: HYDR-3671 PO (12:13)
--- NOTE | 2016-10-10 12:17 | PDOCDIS ---
Discharge Instructions DIAGNOSIS Discharge Diagnosis: Acute pyelonephritis / Kidney stones CONDITION Patient Condition: Stable HOME CARE INSTRUCTIONS: Special Diet: 1800 low cholesterol low fat ACTIVITY: Activity Restrictions: Slowly Increase Activity Rest between Activity OTHER ORDERS: Other Orders: * Drink at least 1.5 L of water daily * Make sure you complete all your antibiotics * Use your stool softeners daily and eat a high fiber diet * Followup with your primary doctor within the next 1-2 weeks for a repeat Urine culture If you don't have one please let someone know, we can give you resources that may help you pick one. You may also call your insurance company to assign one to you. * Also ask for a refferal to urology : Dr Kate * Review your medication list with your nurse before leaving and if you need new prescriptions please let your nurse know. * I have made changes to your home medications or given you new prescriptions, please let your primary doctor know as well. * Stay compliant with your medications and report any side effects to your PCP or pharmacist. * Return to the ER if you have any concerns and cannot reach your doctors or call your insurance company, they usually have a nurse that can help you. DENAE CLARKE Oct 10, 2016 12:17
--- NOTE | 2016-10-13 02:21 | DS ---
DATE OF ADMISSION: 10/05/2016 DATE OF DISCHARGE: 10/10/2016 PRESENTING COMPLAINT: Left flank pain. ADMISSION DIAGNOSES: 1. Obstructing stone in the right UPJ. 2. Left flank pain. 3. Hypertension. 4. Bilateral focal stenosis. CONSULTS ON THE CASE: Dr. Eliseo Kate. INTERVENTION: Abdominal x-ray, which showed a right-sided UPJ stone and constipation. The patient also had a urine culture that grew out Lidia albicans. FINAL DIAGNOSES: A 35-year-old female with bilateral flank pain managed for: 1. Acute pyelonephritis secondary to Lidia for which we could not rule out an underlying bacteria l population. 2. Right-sided nonobstructing kidney stone. 3. Hypertension with good control. 4. Hypertriglyceridemia. 5. Obesity with BMI of 37.4 6. Constipation, now resolved. FINAL MEDICATIONS: 1. Colace 100 p.o. b.i.d. 2. Fenofibrate 48 daily. 3. Hydralazine 25 mg p.o. q.8. 4. Hydrochlorothiazide 25 p.o. daily. 5. [place] 5/325 one tab every 6 p.r.n. 6. Voriconazole 200 mg p.o. b.i.d. to complete a 2-week course. 7. Tamsulosin 0.4 mg daily. RECOMMENDED DIET: 1800 calorie, low cholesterol, low fat diet. DISCHARGE CONDITION: Stable. Follow up with primary tip culture within the next 1 to 2 weeks. Time spent on discharge planning has been about 35 minutes. Dictated By: DENAE CLARKE MD, BA/KJ Conf#: [id number] DID#: [id number]
== END 2016-10-10 15:20 | disposition home or self-care (01) | DRG 690 ==
LOC: MS2 20:44
PROVIDERS: ADMIT Hospitalist; ATTEND Hospitalist
DX: N10 Acute pyelonephritis (principal); I10 Essential (primary) hypertension; L30.2 Cutaneous autosensitization; K59.00 Constipation, unspecified; E78.00 Pure hypercholesterolemia, unspecified; E78.1 Pure hyperglyceridemia; E66.9 Obesity, unspecified; Z68.37 Body mass index [BMI] 37.0-37.9, adult
CPT/HCPCS: 74000; 80048; 80053; 80061; 81001; 81003; 83036; 83735; 84100; 85025; 87086; J0360; J1885; J2270; J2405; J7030

== ENCOUNTER 2016-11-17 22:27 | Emergency (ER) | payer OTHER ==
[~2016-11-17] VITALS: Ht 157.5 cm; Wt 83.0 kg
[~2016-11-17 22:27] MED LIST: DOCU-216 PO; FENO48TA4 PO; HYD25 PO; HYDR-3498 PO; HYDR-3671 PO; TAMS0.4C2 PO; VORI200T9 PO
[2016-11-17 22:35] VITALS: Ht 157.5 cm; Wt 83.0 kg
[2016-11-18 00:03] LABS: URINE BLOOD (Dip) POC 3+ (NEGATIVE)
[2016-11-18] MEDS ORDERED: CEFTRIAXONE 1 GM INJ IM ONE (00:30)
[2016-11-18] MEDS ORDERED: LIDOCAINE 1% (MDV) 20 ML INJ SC ONE (00:30)
[2016-11-18] MEDS ORDERED: CIPR500T4 PO (00:55)
[2016-11-18] MEDS ORDERED: ONDA4TAB8 PO (00:56)
[2016-11-18] MEDS ORDERED: PHEN-537 PO (00:56)
[2016-11-18 01:08] VITALS: BP 162/85; PULSE 62; RESP 20; TEMP 98.8
--- NOTE | 2016-11-18 01:16 | ERD ---
ER Documentation Chief Complaint Date/Time DATE: 11/18/16 TIME: 01:13 Chief Complaint back pain and lower abd pain for a week. burning urination HPI This is a 35-year-old female that presents to the ER with suprapubic pain. Frequency and dysuria for the last week. Patient states she's had nausea and vomiting. Vomiting is nonbilious nonbloody. Patient denies any fevers or chills patient does have flank pain. He shouldn't denies any vaginal discharge. She denies any abdominal pain. ROS 12 point review of systems was done, all negative except per HPI. Medications Home Meds Active Scripts Phenazopyridine Hcl* (Pyridium*) 100 Mg Tab, 100 MG PO TID Y for URINARY PAIN, # 8 TAB Prov:GÓMEZ LOPES 11/18/16 Ondansetron Hcl* (Zofran*) 4 Mg Tablet, 4 MG PO Q6H for NAUSEA AND/OR VOMITING, #30 TAB Prov:GÓMEZ LOPES 11/18/16 Ciprofloxacin Hcl* (Ciprofloxacin Hcl*) 500 Mg Tablet, 500 MG PO BID for 10 Days , TAB Prov:GÓMEZ LOPES 11/18/16 Voriconazole* (Voriconazole*) 200 Mg Tablet, 200 MG PO BID for 11 Days, TAB Prov:DENAE CLARKE 10/10/16 Hydrocodone Bit-Acetaminophen (Hydrocodone Bit-APAP) 5-325MG Tablet, 1 TAB PO Q6H Y for PAIN, #30 TAB Prov:DENAE CLARKE 10/10/16 Hydrochlorothiazide* (Hydrochlorothiazide*) 25 Mg Tab, 25 MG PO DAILY for 30 Days, TAB 2 Refills Prov:DENAE CLARKE 10/10/16 Hydralazine Hcl* (Hydralazine Hcl*) 25 Mg Tab, 25 MG PO Q8 for 30 Days, TAB 1 Refill Prov:DENAE CLARKE 10/10/16 Fenofibrate Nanocrystallized* (Fenofibrate*) 48 Mg Tablet, 48 MG PO DAILY for 30 Days, TAB 1 Refill Prov:DENAE CLARKE 10/10/16 Docusate Sodium (Dok) 100 Mg Capsule, 100 MG PO BID for 30 Days, CAP Prov:DENAE CLARKE 10/10/16 Reported Medications Tamsulosin Hcl* (Tamsulosin Hcl*) 0.4 Mg Cap.er.24h, 0.4 MG PO DAILY, CAP 10/05/16 Allergies Allergies: Coded Allergies: No Known Allergy (Unverified , 10/30/14) PMhx/Soc History of Surgery: Yes Anesthesia Reaction: No Hx Neurological Disorder: No Hx Respiratory Disorders: No Hx Cardiac Disorders: Yes (htn) Hx Psychiatric Problems: No Hx Miscellaneous Medical Probl: No Hx Alcohol Use: No Hx Substance Use: No Hx Tobacco Use: No Smoking Status: Never smoker Physical Exam Vitals Vital Signs Date Time Temp Pulse Resp B/P Pulse Ox O2 Delivery O2 Flow Rate FiO2 11/18/16 01:08 98.8 62 20 162/85 98 Room Air 11/17/16 22:35 98.3 63 18 149/72 98 Physical Exam GENERAL: The patient is well developed and appropriate for usual state of health , in no apparent distress. HEENT: Atraumatic. CHEST: Clear to auscultation bilaterally. There are no rales, wheezes or rhonchi. HEART: Regular rate and rhythm. No murmurs, clicks, rubs or gallops. ABDOMEN: Soft, nontender and nondistended. Good bowel sounds. No rebound or guarding. No gross peritonitis. No gross organomegaly or masses. No Serna sign or McBurney point tenderness. +suprapubic pain BACK: + left sided cva tenderness NEURO: Alert and oriented. Results 24 hrs Laboratory Tests Test 11/18/16 00:02 Bedside Urine pH (LAB) 6.5 Bedside Urine Protein (LAB) 1+ Bedside Urine Glucose (UA) Negative Bedside Urine Ketones (LAB) Negative Bedside Urine Blood 3+ Bedside Urine Nitrite (LAB) Negative Bedside Urine Leukocyte Esterase (L 1+ Current Medications Medications (Trade) Dose Ordered Sig/Gloria Route PRN Reason Start Time Stop Time Status Last Admin Dose Admin Ceftriaxone Sodium (Rocephin) 1 gm ONCE ONCE IM 11/18/16 00:30 11/18/16 00:31 DC 11/18/16 00:30 Lidocaine (Xylocaine 1% (Mdv) 20 ml) 20 ml ONCE ONCE SC 11/18/16 00:30 11/18/16 00:31 DC 11/18/16 00:30 Procedures/MDM Patient was given Rocephin here in the ER without any complications. This is a 35-year-old female presents ER with urinary frequency and CVA tenderness. Patient more likely has pyelonephritis. Suspicion for nephrolithiasis, septic stone, obstructive stone is low. I believe patient has ovarian torsion, tubo-ovarian abscess. SHe is extremely well appearing and is not in a lot of pain. She is afebrile. Patient will be sent home with Cipro, radian, and Zofran. Patient needs to follow-up with her primary care doctor within 1-2 days return to ER sooner symptoms worsen. Medical decision making [place] with the patient she understands and agrees with plan. Departure Diagnosis: Primary Impression: Pyelonephritis Condition: Stable Patient Instructions: Pyelonephritis Additional Instructions: Llame al doctor MAANA y ana estuardo MALU PARA DENTRO DE 1-2 LUNA.Dgale a la secretaria que nosotros le instruimos hacer esta malu.Avise o llame si horn condicin se empeora antes de la malu. Regresa aqui si peor o no mejor. GÓMEZ LOPES Nov 18, 2016 01:16
== END 2016-11-18 01:10 | disposition home or self-care (01) ==
LOC: FTE 22:27
DX: N12 Tubulo-interstitial nephritis, not specified as acute or chronic (principal); R11.2 Nausea with vomiting, unspecified; I10 Essential (primary) hypertension
CPT/HCPCS: 81003; 96372; J0696; Z7502; Z7610

== ENCOUNTER 2017-01-08 15:57 | Emergency (ER) | payer OTHER ==
[~2017-01-08] VITALS: Wt 70.0 kg
[~2017-01-08 15:57] MED LIST changes: +CIPR500T4 PO; +ONDA4TAB8 PO; +PHEN-537 PO
[2017-01-08] MEDS ORDERED: SOD CHLORIDE 0.9% 1,000 ML IV STA (16:27)
[2017-01-08] MEDS ORDERED: ONDANSETRON 4 MG INJ IV STA (16:27)
[2017-01-08] MEDS ORDERED: morphine 4 MG/ML VIAL IV STA (16:27)
--- NOTE | 2017-01-08 17:20 | RADRPT ---
PROCEDURE: CT abdomen and pelvis without contrast. CLINICAL INDICATION: Abdominal Pain TECHNIQUE: CT scan of the abdomen and pelvis without contrast was performed and is reconstructed a t 2.5 mm contiguous axial intervals from the dome of the diaphragm to the inferior pubic rami.. The patient was scanned without intravenous contrast. Sagittal and coronal reformatted images were obt ained from the axial source images. The calculated radiation dose measures 1235 mGy centimeters. The CTDI measures 20 mGy. COMPARISON: None. FINDINGS: The lung bases are clear of any infiltrate or nodule. No effusion is seen. The liver is of normal size and contour. There is diffuse fatty infiltration. No mass or ductal di latation is seen. No gallstones are visualized. No splenic, adrenal or pancreatic abnormalities present. Kidneys are of normal size and contour. No hydronephrosis or masses seen. There are extensive nono bstructing renal calculi measuring up to 4 mm in diameter. Noted is a 15 mm nonobstructing stone in the right renal pelvis. Ureters are of normal course and caliber with no stone. No bladder mass or stone is present. The uterus and ovaries are unremarkable. There is no aneurysm. No adenopathy is present. No bowel mass or obstruction is present. The appendix is normal. No phlegmon, ascites or pneumop eritoneum is visualized. The osseous structures are intact. IMPRESSION: Extensive bilateral nonobstructing renal calculi with 15 mm stone right renal pelvis. No obstructiv e uropathy, diverticulitis or appendicitis. Fatty liver. .Tomy Lemus MD, Date Time Electronically viewed and signed by .Tomy Lemus MD, MD on 01/08/2017 17:20 .A/
[2017-01-08 17:32] LABS: ADD SCAN DIFF NO
[2017-01-08 17:34] LABS: ADD UMIC YES; BASOPHILS % 0.4 % (0.0-2.0); EOSINOPHILS # 0.1 10^3/ul (0.0-0.5); EOSINOPHILS % 1.1 % (0.0-7.0); HEMATOCRIT 39.5 % (37.0-47.0); LYMPHOCYTES # 3.6 10^3/ul (0.8-2.9); LYMPHOCYTES % 35.7 % (15.0-51.0); MEAN CORPUSCULAR HEMOGLOBIN 25.9 pg (29.0-33.0); MEAN CORPUSCULAR HGB CONC 32.9 g/dl (32.0-37.0); MEAN CORPUSCULAR VOLUME 78.7 fl (82.0-101.0); MEAN PLATELET VOLUME 12.6 fl (7.4-10.4); MONOCYTE # 0.9 10^3/ul (0.3-0.9); MONOCYTES % 8.6 % (0.0-11.0); NEUTROPHIL # 5.4 10^3/ul (1.6-7.5); NEUTROPHILS % 53.7 % (39.0-77.0); PLATELET COUNT 286 10^3/UL (140-415); RED BLOOD COUNT 5.02 10^6/ul (4.20-5.40); RED CELL DISTRIBUTION WIDTH 13.7 % (11.5-14.5); URINE BILIRUBIN (Dip) NEGATIVE (NEGATIVE); URINE BLOOD (Dip) 2+ (NEGATIVE); URINE COLOR LT. YELLOW (YELLOW); URINE GLUCOSE (Dip) NEGATIVE (NEGATIVE); URINE KETONES (Dip) NEGATIVE (NEGATIVE); URINE LEUKOCYTE ESTERASE (Dip) 1+ (NEGATIVE); URINE NITRITE (Dip) NEGATIVE (NEGATIVE); URINE TOTAL PROTEIN (Dip) TRACE (NEGATIVE); URINE UROBILINOGEN (Dip) 0.2 E.U./dL (0.1-1.0); WHITE BLOOD COUNT 10.1 10^3/ul (4.8-10.8)
[2017-01-08 17:41] LABS: URINE RBCS >50 /HPF (0)
[2017-01-08 17:42] LABS: BACTERIA,URINE MANY
[2017-01-08 17:59] LABS: ALBUMIN 4.3 g/dl (3.3-4.9); ALBUMIN/GLOBULIN RATIO 1.48; BILIRUBIN,INDIRECT 0.2 mg/dl (0-1.1); BILIRUBIN,TOTAL 0.2 mg/dl (0.2-1.3); CREATININE 0.7 mg/dl (0.44-1.00); POTASSIUM 4.4 mmol/L (3.5-5.1); TOTAL PROTEIN 7.2 g/dl (6.1-8.1)
[2017-01-08] MEDS ORDERED: CEFTRIAXONE 1 GM/50 ML (PMX) 50 ML IVPB ONE (18:30)
[2017-01-08] MEDS ORDERED: HYDR-906 PO (18:32)
[2017-01-08] MEDS ORDERED: ONDA4TAB8 PO (18:32)
[2017-01-08] MEDS ORDERED: CIPR500T4 PO (18:32)
--- NOTE | 2017-01-08 18:50 | ERD ---
ER Documentation Chief Complaint Date/Time DATE: 01/08/17 TIME: 18:46 Chief Complaint ABD PAIN WITH BACK PAIN X 8 DAYS HPI This is a 36-year-old female that presents to the ER with right lower quadrant pain for the last 3 days. Patient states she has had nausea vomiting and fevers. Vomiting is nonbilious nonbloody. She denies any diarrhea. Fever goes up to 103, patient did not have a fever today. She does admit to urinary frequency and dysuria, states that her urine smells bad. Patient has a past medical history of kidney stones. Patient states that she is also experiencing bilateral back pain. This is been going on for the last 3 months. Patient denies any trauma. She denies any urinary bowel incontinence denies any saddle like anesthesia. She denies any IV drug use. ROS 12 point review of systems was done, all negative except per HPI. Medications Home Meds Active Scripts Ondansetron Hcl* (Zofran*) 4 Mg Tablet, 4 MG PO Q6H for NAUSEA AND/OR VOMITING, #30 TAB Prov:GÓMEZ LOPES 01/08/17 Hydrocodone/Acetaminophen ([place] 5-325 Tablet) 1 Each Tablet, 1 TAB PO Q6H Y for PAIN, #15 TAB Prov:GÓMEZ LOPES 01/08/17 Ciprofloxacin Hcl* (Ciprofloxacin Hcl*) 500 Mg Tablet, 500 MG PO BID for 10 Days , TAB Prov:GÓMEZ LOPES 01/08/17 Phenazopyridine Hcl* (Pyridium*) 100 Mg Tab, 100 MG PO TID Y for URINARY PAIN, # 8 TAB Prov:GÓMEZ LOPES 11/18/16 Ondansetron Hcl* (Zofran*) 4 Mg Tablet, 4 MG PO Q6H for NAUSEA AND/OR VOMITING, #30 TAB Prov:GÓMEZ LOPES 11/18/16 Ciprofloxacin Hcl* (Ciprofloxacin Hcl*) 500 Mg Tablet, 500 MG PO BID for 10 Days , TAB Prov:GÓMEZ LOPES 11/18/16 Voriconazole* (Voriconazole*) 200 Mg Tablet, 200 MG PO BID for 11 Days, TAB Prov:DENAE CLARKE 10/10/16 Hydrocodone Bit-Acetaminophen (Hydrocodone Bit-APAP) 5-325MG Tablet, 1 TAB PO Q6H Y for PAIN, #30 TAB Prov:DENAE CLARKE 10/10/16 Hydrochlorothiazide* (Hydrochlorothiazide*) 25 Mg Tab, 25 MG PO DAILY for 30 Days, TAB 2 Refills Prov:DENAE CLARKE 10/10/16 Hydralazine Hcl* (Hydralazine Hcl*) 25 Mg Tab, 25 MG PO Q8 for 30 Days, TAB 1 Refill Prov:DENAE CLARKE 10/10/16 Fenofibrate Nanocrystallized* (Fenofibrate*) 48 Mg Tablet, 48 MG PO DAILY for 30 Days, TAB 1 Refill Prov:DENAE CLARKE 10/10/16 Docusate Sodium (Dok) 100 Mg Capsule, 100 MG PO BID for 30 Days, CAP Prov:DENAE CLARKE. 10/10/16 Reported Medications Tamsulosin Hcl* (Tamsulosin Hcl*) 0.4 Mg Cap.er.24h, 0.4 MG PO DAILY, CAP 10/05/16 Allergies Allergies: Coded Allergies: No Known Allergy (Unverified , 10/30/14) PMhx/Soc History of Surgery: Yes Anesthesia Reaction: No Hx Neurological Disorder: No Hx Respiratory Disorders: No Hx Cardiac Disorders: Yes (htn) Hx Psychiatric Problems: No Hx Miscellaneous Medical Probl: No Hx Alcohol Use: No Hx Substance Use: No Hx Tobacco Use: No Physical Exam Vitals Vital Signs Date Time Temp Pulse Resp B/P Pulse Ox O2 Delivery O2 Flow Rate FiO2 01/08/17 16:03 98.9 78 18 151/73 99 Physical Exam GENERAL: The patient is well developed and appropriate for usual state of health , in no apparent distress. HEENT: Atraumatic. CHEST: Clear to auscultation bilaterally. There are no rales, wheezes or rhonchi. HEART: Regular rate and rhythm. No murmurs, clicks, rubs or gallops. ABDOMEN: Soft, nontender and nondistended. Good bowel sounds. No rebound or guarding. No gross peritonitis. No gross organomegaly or masses. No Serna sign or McBurney point tenderness. BACK: No midline or flank tenderness. NEURO: Alert and oriented. SKIN:The skin is warm and dry. Result Diagram: 01/08/17 1647 01/08/17 1647 Results 24 hrs Laboratory Tests Test 01/08/17 16:47 White Blood Count 10.110^3/ul Red Blood Count 5.0210^6/ul Hemoglobin 13.0g/dl Hematocrit 39.5% Mean Corpuscular Volume 78.7fl Mean Corpuscular Hemoglobin 25.9pg Mean Corpuscular Hemoglobin Concent 32.9g/dl Red Cell Distribution Width 13.7% Platelet Count 68392^3/UL Mean Platelet Volume 12.6fl Neutrophils % 53.7% Lymphocytes % 35.7% Monocytes % 8.6% Eosinophils % 1.1% Basophils % 0.4% Nucleated Red Blood Cells % 0.0/100WBC Neutrophils # 5.410^3/ul Lymphocytes # 3.610^3/ul Monocytes # 0.910^3/ul Eosinophils # 0.110^3/ul Basophils # 0.010^3/ul Nucleated Red Blood Cells # 0.010^3/ul Urine Color LT. YELLOW Urine Clarity CLEAR Urine pH 6.0 Urine Specific Lucas 1.020 Urine Ketones NEGATIVE Urine Nitrite NEGATIVE Urine Bilirubin NEGATIVE Urine Urobilinogen 0.2 E.U./dL Urine Leukocyte Esterase 1+ Urine Microscopic RBC >50/HPF Urine Microscopic WBC 25-50/HPF Urine Epithelial Cells MODERATE Urine Bacteria MANY Urine Hemoglobin 2+ Urine Glucose NEGATIVE% Urine Total Protein TRACE Sodium Level 138mmol/L Potassium Level 4.4mmol/L Chloride Level 107mmol/L Carbon Dioxide Level 24mmol/L Anion Gap 11 Blood Urea Nitrogen 11mg/dl Creatinine 0.70mg/dl Glucose Level 99mg/dl Calcium Level 10.0mg/dl Total Bilirubin 0.2mg/dl Direct Bilirubin 0.00mg/dl Indirect Bilirubin 0.2mg/dl Aspartate Amino Transf (AST/SGOT) 20IU/L Alanine Aminotransferase (ALT/SGPT) 36IU/L Alkaline Phosphatase 41IU/L Total Protein 7.2g/dl Albumin 4.3g/dl Globulin 2.90g/dl Albumin/Globulin Ratio 1.48 Lipase 85U/L Current Medications Medications (Trade) Dose Ordered Sig/Gloria Route PRN Reason Start Time Stop Time Status Last Admin Dose Admin Sodium Chloride (NS) 1,000 ml @ 1,000 mls/hr Q1H STAT IV 01/08/17 16:27 01/08/17 17:26 DC 01/08/17 16:57 Morphine Sulfate (morphine) 4 mg ONCE STAT IV 01/08/17 16:27 01/08/17 16:29 DC 01/08/17 16:57 Ondansetron HCl 4 mg 4 mg ONCE STAT IV 01/08/17 16:27 01/08/17 16:29 DC 01/08/17 16:57 Ceftriaxone Sodium (Rocephin) 50 ml @ 100 mls/hr ONCE ONCE IVPB 01/08/17 18:30 01/08/17 18:59 01/08/17 18:25 Procedures/MDM Differential diagnosis includes but is not limited to appendicitis, hernia ,UTI , nephrolithiasis, obstructive kidney stone, septic kidney stone, constipation. This is a 36-year-old female presents to the ER with right lower quadrant pain. Patient does have kidney stones any urinary tract infection. Since patient had nausea vomiting and fever at home she will be treated for possible pyelonephritis. She was given Rocephin in the ER without any complications. She will be sent home with a 10 day course of Cipro. At this time patient does not have an elevation in her white blood cells, she is afebrile and well-appearing in the ER. Kidney stone is nonobstructive I doubt septic kidney stone. Patient's urine will be sent for culture. She urgently needs to follow-up with the urologist. I shared my medical decision making with the patient's she understands and agrees with plan. She is to return to ER sooner if symptoms worsen. Departure Diagnosis: Primary Impression: UTI (urinary tract infection) Additional Impression: Kidney stone Patient Instructions: Understanding Urinary Tract Infections (UTIs), Kidney Stone W/ Colic Additional Instructions: Llame al doctor MAANA y ana estuardo MALU PARA DENTRO DE 1-2 LUNA.Dgale a la secretaria que nosotros le instruimos hacer esta malu.Avise o llame si horn condicin se empeora antes de la malu. Regresa aqui si peor o no mejor. GÓMEZ LOPES January 08, 2017 18:50
[2017-01-08 20:20] VITALS: BP 122/65; PULSE 78; RESP 18; TEMP 98.7
== END 2017-01-08 20:21 | disposition home or self-care (01) ==
LOC: FTE 15:57
DX: N39.0 Urinary tract infection, site not specified (principal); N20.0 Calculus of kidney; R11.2 Nausea with vomiting, unspecified
CPT/HCPCS: 36415; 74176; 80053; 81001; 83690; 85025; 87086; 96374; 96375; J0696; J2270; J2405; J7030; Z7502

== ENCOUNTER 2017-03-07 20:27 | Emergency (ER) | payer OTHER ==
[~2017-03-07] VITALS: Ht 160 cm; Wt 84.0 kg
[~2017-03-07 20:27] MED LIST changes: +HYDR-906 PO
[2017-03-07 20:30] VITALS: Ht 160 cm; Wt 84.0 kg
[2017-03-07] MEDS ORDERED: KETOROLAC 60 MG INJ IM STA (22:34)
[2017-03-07 23:12] LABS: ADD UMIC YES; UR ASCORBIC ACID NEGATIVE (NEGATIVE); UR BACTERIA FEW /HPF (NONE SEEN); UR BILIRUBIN (Dip) NEGATIVE (NEGATIVE); UR BLOOD (Dip) 3+ mg/dL (NEGATIVE); UR CLARITY SLIGHTLY CLOUDY (CLEAR); UR COLOR YELLOW (YELLOW); UR GLUCOSE (Dip) NEGATIVE (NEGATIVE); UR KETONES (Dip) NEGATIVE (NEGATIVE); UR LEUKOCYTE ESTERASE (Dip) 1+ Leu/ul (NEGATIVE); UR NITRITE (Dip) NEGATIVE (NEGATIVE); UR RBC > 182 /HPF (0-5); UR SPECIFIC GRAVITY (Dip) 1.009 (1.003-1.030); UR SQUAMOUS EPITHELIAL CELL FEW /HPF (FEW); UR TOTAL PROTEIN (Dip) 1+ mg/dl (NEGATIVE); UR UROBILINOGEN (Dip) NEGATIVE (NEGATIVE)
--- NOTE | 2017-03-07 23:49 | RADRPT ---
PROCEDURE: ULTRASOUND RETROPERITONEUM CLINICAL INDICATION: 36-year-old female with flank pain. TECHNIQUE: Multiple sonographic images of the retroperitoneum were obtained. The images were revi ewed on a PACS workstation. COMPARISON: CT abdomen/pelvis January 08, 2017. FINDINGS: The kidneys are well visualized. The right kidney measures 9.9 cm in maximal length. The left kidney measures 9.6 cm in maximal length. There is mild left-sided prominence of the left renal collecting system without vicky hydronephrosis. There are multiple bilateral nonobstructing shadowing stones. The largest on the right side measuring 15 mm. The largest on the left side measures 12 mm. The b ladder is without internal echoes or shadowing stones. IMPRESSION: 1. Mild prominence of the left renal collecting system without vicky hydronephrosis. 2. Multiple bilateral nonobstructing renal calculi. .Yuval Reaves MD, MD Date Time Electronically viewed and signed by .Yuval Reaves MD, on 03/07/2017 23:49 .M/
[2017-03-08] MEDS ORDERED: TAMS-14 PO (00:24)
[2017-03-08] MEDS ORDERED: CIPR500T4 PO (00:24)
[2017-03-08] MEDS ORDERED: IBUP-1542 PO (00:24)
--- NOTE | 2017-03-08 00:31 | ERD ---
ER Documentation Chief Complaint Date/Time DATE: 03/08/17 TIME: 00:27 Chief Complaint back pain x 6 days, denies injury HPI 36-year-old female patient with a past medical history of hypertension, prediabetes, nephrolithiasis presents to the ED complaining of bilateral flank pain that started 6 days ago. Reports that her last menses was on February 18, 2017. States that she is slightly nauseous and had 2 episodes of nonbilious nonbloody vomiting however does not have any more nausea. Denies any chest pain , shortness of breath, wheezing, abdominal pain, diarrhea, constipation. ROS All systems reviewed and are negative except as per history of present illness. Medications Home Meds Active Scripts Ondansetron (Ondansetron Odt) 4 Mg Tab.rapdis, 4 MG PO Q6H Y for NAUSEA AND/OR VOMITING, #10 TAB Prov:DANDY MORALES PA-C 03/08/17 Ibuprofen* (Motrin*) 600 Mg Tab, 600 MG PO Q6, #30 TAB take with food Prov:DANDY MORALES PA-C 03/08/17 Tamsulosin Hcl* (Flomax*) 0.4 Mg Cap.er.24h, 0.4 MG PO QPM, #20 CAP Prov:DANDY MORALES PA-C 03/08/17 Ciprofloxacin Hcl* (Ciprofloxacin Hcl*) 500 Mg Tablet, 500 MG PO BID for 10 Days , TAB Prov:DANDY MORALES PA-C 03/08/17 Ondansetron Hcl* (Zofran*) 4 Mg Tablet, 4 MG PO Q6H for NAUSEA AND/OR VOMITING, #30 TAB Prov:GÓMEZ LOPES 01/08/17 Hydrocodone/Acetaminophen ([place] 5-325 Tablet) 1 Each Tablet, 1 TAB PO Q6H Y for PAIN, #15 TAB Prov:GÓMEZ LOPES 01/08/17 Ciprofloxacin Hcl* (Ciprofloxacin Hcl*) 500 Mg Tablet, 500 MG PO BID for 10 Days , TAB Prov:GÓMEZ LOPES 01/08/17 Phenazopyridine Hcl* (Pyridium*) 100 Mg Tab, 100 MG PO TID Y for URINARY PAIN, # 8 TAB Prov:GÓMEZ LOPES 11/18/16 Ondansetron Hcl* (Zofran*) 4 Mg Tablet, 4 MG PO Q6H for NAUSEA AND/OR VOMITING, #30 TAB Prov:GÓMEZ LOPES 11/18/16 Ciprofloxacin Hcl* (Ciprofloxacin Hcl*) 500 Mg Tablet, 500 MG PO BID for 10 Days , TAB Prov:GÓMEZ LOPES 11/18/16 Voriconazole* (Voriconazole*) 200 Mg Tablet, 200 MG PO BID for 11 Days, TAB Prov:DENAE CLARKE. 10/10/16 Hydrocodone Bit-Acetaminophen (Hydrocodone Bit-APAP) 5-325MG Tablet, 1 TAB PO Q6H Y for PAIN, #30 TAB Prov:DENAE CLARKE. 10/10/16 Hydrochlorothiazide* (Hydrochlorothiazide*) 25 Mg Tab, 25 MG PO DAILY for 30 Days, TAB 2 Refills Prov:DENAE CLARKE 10/10/16 Hydralazine Hcl* (Hydralazine Hcl*) 25 Mg Tab, 25 MG PO Q8 for 30 Days, TAB 1 Refill Prov:DENAE CLARKE. 10/10/16 Fenofibrate Nanocrystallized* (Fenofibrate*) 48 Mg Tablet, 48 MG PO DAILY for 30 Days, TAB 1 Refill Prov:DENAE CLARKE. 10/10/16 Docusate Sodium (Dok) 100 Mg Capsule, 100 MG PO BID for 30 Days, CAP Prov:DENAE CLARKE . 10/10/16 Reported Medications Tamsulosin Hcl* (Tamsulosin Hcl*) 0.4 Mg Cap.er.24h, 0.4 MG PO DAILY, CAP 10/05/16 Allergies Allergies: Coded Allergies: No Known Allergy (Unverified , 03/07/17) PMhx/Soc History of Surgery: Yes (c-sec) Anesthesia Reaction: No Hx Neurological Disorder: No Hx Respiratory Disorders: No Hx Cardiac Disorders: Yes (htn) Hx Psychiatric Problems: No Hx Miscellaneous Medical Probl: No Hx Alcohol Use: No Hx Substance Use: No Hx Tobacco Use: No Physical Exam Vitals Vital Signs Date Time Temp Pulse Resp B/P Pulse Ox O2 Delivery O2 Flow Rate FiO2 03/08/17 00:45 67 18 177/105 97 Room Air 03/07/17 20:30 97.5 70 20 164/89 98 Physical Exam Const: [id number], well-nourished. In no acute distress. Head: Atraumatic, normocephalic Eyes: Normal Conjunctiva without injection. No purulent discharge. ENT: Normal external ear, nose. Moist oropharynx without tonsillar exudates. Non -erythematous pharynx. Uvula midline. No drooling. No trismus. Neck: No cervical midline tenderness. Full range of motion. No meningismus. No cervical lymphadenopathy. No JVD. Resp: Clear to auscultation bilaterally. No wheezing, rhonchi, rales, or crackles. No accessory muscle use. No retractions. Cardio: Regular rate and rhythm. No murmurs, rubs or gallops. Abd: Soft, nontender, non distended. Normal bowel sounds. No palpable masses. No rebound tenderness. No guarding. Negative McBurney's point. Negative psoas sign. Negative obturator sign. Skin: No petechiae or rashes Back: No midline tenderness. No CVA tenderness. Ext: No cyanosis, or edema. Neur: Awake and alert. Normal gait. Normal coordination. Psych: Normal Mood and Affect Results 24 hrs Laboratory Tests Test 03/07/17 22:45 Urine Color YELLOW Urine Clarity SLIGHTLY CLOUDY Urine pH 6.0 Urine Specific Register 1.009 Urine Ketones NEGATIVEmg/dL Urine Nitrite NEGATIVEmg/dL Urine Bilirubin NEGATIVEmg/dL Urine Urobilinogen NEGATIVEmg/dL Urine Leukocyte Esterase 1+Cmaille/ul Urine Microscopic RBC > 182/HPF Urine Microscopic WBC 75/HPF Urine Squamous Epithelial Cells FEW/HPF Urine Bacteria FEW/HPF Urine Hemoglobin 3+mg/dL Urine Glucose NEGATIVEmg/dL Urine Total Protein 1+mg/dl Current Medications Medications (Trade) Dose Ordered Sig/Gloria Route PRN Reason Start Time Stop Time Status Last Admin Dose Admin Ketorolac Tromethamine (Toradol) 60 mg ONCE STAT IM 03/07/17 22:34 03/07/17 22:39 DC 03/07/17 22:46 Procedures/MDM 28-year-old female patient with a past medical history of hypertension, prediabetes, nephrolithiasis presents to the ED complaining of bilateral flank pain, nausea, vomiting. Patient is afebrile nontoxic appearing. Patient's blood pressure was noted to be 164/89. Patient's blood pressure was elevated (> 120/80) but appears stable without evidence of hypertension emergency or urgency. The patient was counseled about the risks of hypertension and urged to pursue outpatient monitoring and therapy within a week with their primary care physician. A renal ultrasound and urinalysis was ordered to further evaluate patient. Urinalysis shows 1+ leukocyte esterase with 75 white blood cells as well as 2+ hematuria with greater than 182 red blood cells noted. Negative urine . PROCEDURE: ULTRASOUND RETROPERITONEUM CLINICAL INDICATION: 36-year-old female with flank pain. TECHNIQUE: Multiple sonographic images of the retroperitoneum were obtained. The images were reviewed on a PACS workstation. COMPARISON: CT abdomen/pelvis January 08, 2017. FINDINGS: The kidneys are well visualized. The right kidney measures 9.9 cm in maximal length. The left kidney measures 9.6 cm in maximal length. There is mild left- sided prominence of the left renal collecting system without vicky hydronephrosis. There are multiple bilateral nonobstructing shadowing stones. The largest on the right side measuring 15 mm. The largest on the left side measures 12 mm. The bladder is without internal echoes or shadowing stones. IMPRESSION: 1. Mild prominence of the left renal collecting system without vicky hydronephrosis. 2. Multiple bilateral nonobstructing renal calculi. Discharge medications: Zofran, Flomax, Ibuprofen, Ciprofloxacin Follow up with primary care physician in 1-2 days for follow up care with a urologist. Instructed patient to return to the ED sooner for any worsening symptoms. Patient's questions were answered. Patient understood and agreed with discharge plan. Patient discharged stable. Departure Diagnosis: Primary Impression: Nephrolithiasis Condition: Stable Patient Instructions: Urinary Tract Infections in Women, Kidney Stone W/ Colic , Kidney Stone (Urine) Referrals: [facility] Usted se canchola hecho un examen mdico de control que le indica que no est en estuardo condicin que requiera tratamiento urgente en el Departamento de Emergencia. Un estudio ms profundo y el tratamiento de horn condicin pueden esperar sin ningn riesgo hasta que usted sea atendida/o en el consultorio de horn mdico o estuardo cl erick. Es responsabilidad suya arreglar estuardo steven para el seguimiento del kiran. MANEJO DE CONDICIONES NO URGENTES EN EL FUTURO 1) Si usted tiene un mdico de atencin primaria: Usted debera llamar a horn mdico de atencin primaria antes de venir al departamento de emergencia. Despus de las horas de consultorio, horn doctor o horn asociado/a est disponible por telfono. El mdico o enfermero de elham en el servicio telefnico puede asesorarle por kirt medio para atender el problema, o kiran contrario se puede programar estuardo steven. 2) Si usted no tiene un mdico de atencin primaria: Llame al mdico o clnica de referencia que aparece abajo baudilio las horas de consultorio para hacer estuardo steven para que le vean. CLINICAS: [facility] [phone] [address] [facility] [phone] [address] [facility] [phone] [address] [facility] [phone] [facility] [facility] [phone] [address] [facility]. [phone] [address] [facility]. [facility] () Usted se canchola hecho un examen mdico de control que le indica que no est en estuardo condicin que requiera tratamiento urgente en el Departamento de Emergencia. Un estudio ms profundo y el tratamiento de horn condicin pueden esperar sin ningn riesgo hasta que usted sea atendida/o en el consultorio de horn mdico o estuardo cl erick. Es responsabilidad suya arreglar estuardo steven para el seguimiento del kiran. MANEJO DE CONDICIONES NO URGENTES EN EL FUTURO 1) Si usted tiene un mdico de atencin primaria: Usted debera llamar a horn mdico de atencin primaria antes de venir al departamento de emergencia. Despus de las horas de consultorio, horn doctor o horn asociado/a est disponible por telfono. El mdico o enfermero de elham en el servicio telefnico puede asesorarle por kirt medio para atender el problema, o kiran contrario se puede programar estuardo steven. 2) Si usted no tiene un mdico de atencin primaria: Llame al mdico o condado institucions de referencia que aparece abajo baudilio las horas de consultorio para hacer estuardo steven para que le vean. SI USTED NO PUEDE PAGAR PARA FELECIA UN MEDICO puede ir a: [facility] [address] [place] [address] [facility] [address] [place] [address] [facility] [address] [place] [address] [facility] [address] [place], [place] [phone] Additional Instructions: Visite a horn mdico maana para un EXAMEN para un referido felecia a un urlogo para estuardo evaluacin adicional y tratamiento y posible litotricia de clculos renales.Regrese a estas instalaciones si no se mejora jose l esperbamos o jose l le dijimos - fiebre, nuseas, vmitos, escalofros, empeoramiento de dolor, etcetera. DANDY MORAELS PA-C Mar 08, 2017 00:30
[2017-03-08] MEDS ORDERED: ONDA4TAB14 PO (00:33)
[2017-03-08 00:45] VITALS: BP 177/105; PULSE 67; RESP 18
== END 2017-03-08 00:47 | disposition home or self-care (01) ==
LOC: FTE 20:27
DX: N20.0 Calculus of kidney (principal); I10 Essential (primary) hypertension; R11.0 Nausea
CPT/HCPCS: 76775; 81001; J1885; 96372

== ENCOUNTER 2017-03-19 15:10 | Emergency (ER) | payer OTHER ==
[~2017-03-19] VITALS: Ht 157.5 cm; Wt 102.0 kg
[~2017-03-19 15:10] MED LIST changes: -HYD25 PO; +HYDR25TA6 PO; +IBUP-1542 PO; +ONDA4TAB14 PO; +TAMS-14 PO
[2017-03-19 15:12] VITALS: Ht 157.5 cm; Wt 102.0 kg
[2017-03-19] MEDS ORDERED: ONDANSETRON (ODT) 4 MG TAB ODT STA (16:31)
[2017-03-19] MEDS ORDERED: morphine 10 MG INJ IM ONE (17:00)
[2017-03-19 17:04] LABS: BASOPHIL # 0.1 10^3/ul (0.0-0.1); BASOPHILS % 0.6 % (0.0-2.0); EOSINOPHILS # 0.1 10^3/ul (0.0-0.5); EOSINOPHILS % 0.9 % (0.0-7.0); HEMATOCRIT 38.2 % (37.0-47.0); LYMPHOCYTES # 3.5 10^3/ul (0.8-2.9); MEAN CORPUSCULAR HEMOGLOBIN 25.5 pg (29.0-33.0); MEAN CORPUSCULAR VOLUME 74.9 fl (82.0-101.0); MEAN PLATELET VOLUME 11.9 fl (7.4-10.4); MONOCYTE # 0.7 10^3/ul (0.3-0.9); MONOCYTES % 7.6 % (0.0-11.0); NEUTROPHIL # 4.6 10^3/ul (1.6-7.5); NEUTROPHILS % 51.7 % (39.0-77.0); PLATELET COUNT 274 10^3/UL (140-415); RED CELL DISTRIBUTION WIDTH 13.2 % (11.5-14.5); WHITE BLOOD COUNT 8.9 10^3/ul (4.8-10.8)
[2017-03-19 17:23] LABS: ALBUMIN 4.8 g/dl (3.3-4.9); ALBUMIN/GLOBULIN RATIO 1.5; BILIRUBIN,INDIRECT 0.4 mg/dl (0-1.1); BILIRUBIN,TOTAL 0.4 mg/dl (0.2-1.3); CALCIUM 9.8 mg/dl (8.4-10.2); POTASSIUM 3.4 mmol/L (3.5-5.1)
[2017-03-19 17:51] LABS: CREATININE 0.66 mg/dl (0.44-1.00)
--- NOTE | 2017-03-19 20:47 | RADRPT ---
PROCEDURE: CT Abdomen and Pelvis without contrast CLINICAL INDICATION: Abdominal pain TECHNIQUE: Transaxial images were obtained through the abdomen and pelvis on a multi-slice scanner without the intravenous contrast administration. No oral contrast had previously been given. Sagit frank and coronal re-formations were subsequently reconstructed. One or more of the following dose reduction techniques were used: - Automated exposure control. - Adjustment of the mA and/or kV according to patient size. - Use of iterative reconstruction technique. Radiation dose: CTDIvol = 17.53 mGy; DLP = 956.46 mGy-cm. COMPARISON: 01/08/2017 FINDINGS: Lung bases: The visualized lung bases appear unremarkable. Liver: The liver appears normal in size and remains diffusely fatty infiltrated with no focal lesion . Gallbladder: The wall is not thickened. No radiopaque stones are identified. Bile ducts: The intra and extrahepatic bile ducts are normal in caliber. Pancreas: Appears normal with no mass or inflammation evident. Spleen: Normal in size with no focal lesion. Adrenals: Normal with no mass identified. Kidneys, ureters and bladder: There is nephrocalcinosis involving both kidneys. A 1.6 x 0.9 cm calc ification is seen in the right renal pelvis. A 3 mm nonobstructing nephrolith is seen within the horn perior pole of the right kidney. A 9 mm in maximal diameter nephrolith is seen within the inferior pole right kidney. A 6 mm in maximal diameter nonobstructing nephrolith is seen in the superior laura e of the left kidney and a 6 mm in maximal diameter nephrolith is seen within the inferior pole left kidney. There is no hydronephrosis.. The ureters are normal in caliber and no ureteroliths are bobby ntified. The bladder appears unremarkable. Reproductive organs: Unremarkable. Stomach and bowel: The stomach is moderately distended with food debris and fluid. There is substan tial stool within the right colon. There is no evidence of bowel obstruction or inflammation. 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 Peritoneum: No free intraperitoneal fluid or air is identified. There is a small fat containing umbi lical hernia. Aorta: Normal in caliber with no aneurysmal dilatation. IVC: Unremarkable. Lymph nodes: No pathologically enlarged nodes are identified. Osseous structures: Minimal diffuse degenerative endplate changes are seen to the spine. IMPRESSION: 1. Since the previous CT of 01/08/2017, there is again a 1.6 x 0.9 cm calcification is seen in the right renal pelvis. There are again bilateral nonobstructing nephroliths and there is again bilater al nephrocalcinosis without evidence of urinary outflow obstruction or ureterolithiasis. The bladde r appears unremarkable. 2. The stomach is even more distended with food debris and fluid and there is substantial stool rig ht colon but there is no evidence of bowel obstruction or inflammation with portions of an unremarka ble appearing vermiform appendix evident. 3. Small fat containing umbilical hernia, unchanged. 4. Normal sized fatty infiltrated liver. Physician Olivia Date Time Electronically viewed and signed by Physician Olivia on 03/19/2017 20:47 /
[2017-03-19] MEDS ORDERED: IBUP800T25 PO (20:57)
[2017-03-19 21:34] LABS: ADD UMIC YES; UR ASCORBIC ACID NEGATIVE (NEGATIVE); UR BACTERIA FEW /HPF (NONE SEEN); UR BILIRUBIN (Dip) NEGATIVE (NEGATIVE); UR BLOOD (Dip) 3+ mg/dL (NEGATIVE); UR CLARITY CLOUDY (CLEAR); UR COLOR RED (YELLOW); UR GLUCOSE (Dip) NEGATIVE (NEGATIVE); UR KETONES (Dip) TRACE mg/dL (NEGATIVE); UR LEUKOCYTE ESTERASE (Dip) TRACE Leu/ul (NEGATIVE); UR MUCUS FEW /HPF (NONE SEEN); UR NITRITE (Dip) NEGATIVE (NEGATIVE); UR RBC > 182 /HPF (0-5); UR SPECIFIC GRAVITY (Dip) 1.023 (1.003-1.030); UR SQUAMOUS EPITHELIAL CELL FEW /HPF (FEW); UR TOTAL PROTEIN (Dip) 2+ mg/dl (NEGATIVE); UR UROBILINOGEN (Dip) NEGATIVE (NEGATIVE); UR WBC CLUMPS FEW /HPF (NONE SEEN)
--- NOTE | 2017-03-23 04:24 | ERD ---
DATE OF SERVICE: 03/22/2017 PATIENT NAME: Kymberly Haywood [id number] CHIEF COMPLAINT: Flank pain. IMPRESSION: This is a 36-year-old female with a history of hypertension and prediabetes, who presents to the emergency department complaining of intermittent flank pain that has been present for the past 2 weeks. Patient had been seen and evaluated at [facility] roughly 11 days prior to arrival on March 07, 2017. The patient has also been complaining of roughly 6 days of intermittent bilateral flank pain at that time. A renal ultrasound had been obtained and indicated that the patient had nonobstructing bilateral calculi. The patient also had concomitant infection in her urine. She had been sent home with a 10-day prescription of ciprofloxacin, Flomax and Motrin for analgesia control. She indicates she had not initially filled her ciprofloxacin prescription and has currently taken 7 of the 10 days. The patient indicates she no longer has any frequency, urgency or dysuria but does have gross hematuria. The patient presented to the emergency department again today stating that she had more intense pain that developed roughly 48 hours prior to arrival in the right flank region that radiated to the right lower abdomen. The patient said she has not had a bowel movement for the past 24 hrs. She has had no fevers, no shaking, no chills. There are no alleviating or exacerbating factors to the right flank pain. The patient indicates that when the pain is present she cannot find a comfortable position. She has not experienced any nausea or vomiting. She has not experienced any diaphoresis. She denies any chest pain or pressure that radiates to the neck, arm, back or jaw, and she also denies a headache or recent travel. She has not followed up with a urologist. PAST MEDICAL HISTORY: Hypertension, prediabetes. PAST SURGICAL HISTORY: Denies. ALLERGIES: NO KNOWN DRUG ALLERGIES. SOCIAL HISTORY: Denies tobacco, EtOH or illicit drug use. REVIEW OF SYSTEMS: All 12 systems were reviewed and negative unless listed in the History of Present Illness. PHYSICAL EXAMINATION: VITAL SIGNS: Blood pressure is 182/104, respiratory is 22, pulse rate is 86, temperature is 97.6, pulse ox is 98 percent on room air. CONSTITUTIONAL: Well-developed, well-nourished female. She was sitting upright on a stretcher. Appeared to be in mild distress secondary to pain. HEENT: Normocephalic, atraumatic. Moist mucous membranes. No erythema of the oropharynx. NECK: Supple. No masses. No tenderness. Trachea midline. No lymphadenopathy. RESPIRATORY: Lungs are clear to auscultation bilaterally with no wheezing, no rhonchi, no rales. CARDIOVASCULAR: Regular rate and rhythm. Normal S1, S2. There are no murmurs or rubs appreciated. Distal pulses are palpable to posterior tibials bilaterally. Capillary refill is less than 2 seconds. GASTROINTESTINAL: Abdomen was soft. No tenderness in the right lower quadrant over McBurney's point. Psoas sign negative. Obturator sign negative. No tenderness in the left lower quadrant. Positive CVA tenderness on the left with no pulsatile abdominal masses or bruits. MUSCULOSKELETAL: Patient has full range of motion. Muscular strength 5/5 bilaterally. Muscle tone is normal. SKIN: Warm, dry with no cyanosis, diaphoresis, or edema. No petechiae, no purpura. NEUROLOGIC: Patient is alert and oriented x3. No focal neurological deficits. Gait is observed to be normal. There was no ataxia. DIAGNOSTIC TEST INTERPRETATION: 1. Pulse oximetry interpreted as normal. There is no evidence of hypoxemia. 2. CT abdomen, ordered and reviewed by myself, without contrast, as well as the radiologist, indicated that the patient had a 3 mm nonobstructing stone on the right specifically located in the superior pole of the right kidney. The patient also had a 6 mm diameter nonobstructing nephrolith seen in the superior pole of the left kidney and a 6 mm maximal diameter nephrolith seen in the inferior pole of the left kidney with no hydronephrosis. The patient also had substantial stool that was present in the right colon with no evidence of bowel obstruction or inflammation. 3. Laboratory work: The patient had no leukocytosis. White blood cell count is 8.9. The patient was not anemic. There was no acute kidney injury. BUN 10, creatinine 0.6. Blood glucose normal at 112. Serum sodium normal at 142, potassium slightly low at 3.4. The patient had microscopic hematuria with trace ketones. There was leukocytosis with trace leukocytes and negative nitrite. MEDICAL DECISION MAKING/EMERGENCY DEPARTMENT COURSE: This patient was seen and evaluated by myself, and then transferred to the emergency department with intermittent flank pain for the past several weeks. My differential diagnosis included, but was not limited to, infecting or rupturing aortic aneurysm, renal infraction, papillary necrosis from ectopic , ovarian cyst or torsion, appendicitis, intestinal obstruction, biliary tract disease, musculoskeletal strain, lower lobe pneumonia. The patient had no signs of clinical dehydration and she was able to tolerate p.o. fluids to maintain her hydration status; therefore, I did not feel it was necessary to obtain IV access. The patient did receive intramuscular analgesic medication, which included IM morphine and Zofran. The patient is afebrile with no complaints of frequency, urgency, or dysuria and currently is on ciprofloxacin. The patient did have pyuria on her urinalysis. However, I compared the urinalysis from March 07 and the patient at that time had positive leukocytes and today only had trace leukocytes with no nitrites. I instructed the patient to continue and finish the end of her antibiotic prescription. The patient did not appear to have pyelonephritis at this time. The patient was hypertensive but has a known history of hypertension and had not taken her antihypertensive medications prior to arrival. The patient had no signs of end-organ damage to suggest hypertensive emergency or urgency. She was instructed to continue to take her antihypertensives when she arrives home. The patient had normal renal function. It was reliable patient with adequate home situation as her was present with her child. They stated that they would arrange for urological follow- up. The patient had no physical exam findings or radiographic imaging to suggest high-grade obstruction. I did feel on today's visit it was necessary to undergo a CT scan, given that the patient had persistent pain. Again, as stated above, the patient has no intrinsic renal disease, signs of renal deficiency or high- grade obstruction. Indicated that, her stones likely will usually pass spontaneously given that they are less than 5 mm in size. However, due to her symptoms being persistent for 2 weeks, I instructed the patient on the importance of following up with a urologist. The patient had no evidence of renal infarction that could suggest vascular dissection or arterial embolus. The patient has no history of sickle-cell disease, analgesic abuse, or infection that could suggest papillary necrosis at this time. The patient will be discharged home in fair condition. INSTRUCTIONS: Return to the emergency department if her symptoms worsen. IMPRESSION: Nonobstructive nephrolithiasis. Dictated By: Dinorah Zarate MD /[email or web address]/[email or web address] /Document#: [id number] MTDD
== END 2017-03-19 21:21 | disposition home or self-care (01) ==
LOC: FTE 15:10
DX: N20.0 Calculus of kidney (principal); I10 Essential (primary) hypertension
CPT/HCPCS: 74176; 80053; 81001; 85025; 96372; J2270; Z7502; Z7610

== ENCOUNTER 2017-05-19 18:22 | Emergency (ER) | payer OTHER ==
[~2017-05-19] VITALS: Ht 160 cm; Wt 84.5 kg
[~2017-05-19 18:22] MED LIST changes: +IBUP800T25 PO
[2017-05-19 18:29] VITALS: Ht 160 cm; Wt 84.5 kg
[2017-05-19] MEDS ORDERED: CEPH-443 PO (18:52)
[2017-05-19] MEDS ORDERED: PHEN-538 PO (18:52)
[2017-05-19 19:03] LABS: URINE BLOOD (Dip) POC 3+ (NEGATIVE)
--- NOTE | 2017-05-19 19:42 | ERD ---
ER Documentation Chief Complaint Date/Time DATE: 05/19/17 TIME: 19:38 Chief Complaint pelvic pain x 6 days HPI 36 year old female with history of nephrolithiasis presents to the emergency department complaining of moderate constant suprapubic pain for six days. Patient admits to having painful urination. She denies any fevers, hematuria. Patient was evaluated at this facility for renal calculi one month prior to being seen and had a CT ROS All systems reviewed and are negative except as per history of present illness. Medications Home Meds Active Scripts Phenazopyridine Hcl* (Pyridium*) 200 Mg Tab, 200 MG PO TID Y for URINARY PAIN, # 6 TAB Prov:ANGEL BEDOYA PA-C 05/19/17 Cephalexin* (Keflex*) 500 Mg Capsule, 500 MG PO TID for 7 Days, CAP Prov:ANGEL BEDOYA PA-C 05/19/17 Ibuprofen* (Motrin*) 800 Mg Tab, 800 MG PO Q6H Y for PAIN AND OR ELEVATED TEMP, #30 TAB Prov:CHETAN GUDINO 03/19/17 Ondansetron (Ondansetron Odt) 4 Mg Tab.rapdis, 4 MG PO Q6H Y for NAUSEA AND/OR VOMITING, #10 TAB Prov:DANDY MORALES PA-C 03/08/17 Ibuprofen* (Motrin*) 600 Mg Tab, 600 MG PO Q6, #30 TAB take with food Prov:DANDY MORALES PA-C 03/08/17 Tamsulosin Hcl* (Flomax*) 0.4 Mg Cap.er.24h, 0.4 MG PO QPM, #20 CAP Prov:DANDY MORALES PA-C 03/08/17 Ciprofloxacin Hcl* (Ciprofloxacin Hcl*) 500 Mg Tablet, 500 MG PO BID for 10 Days , TAB Prov:DANDY MORALES PA-C 03/08/17 Ondansetron Hcl* (Zofran*) 4 Mg Tablet, 4 MG PO Q6H for NAUSEA AND/OR VOMITING, #30 TAB Prov:GÓMEZ LOPES 01/08/17 Hydrocodone/Acetaminophen ([place] 5-325 Tablet) 1 Each Tablet, 1 TAB PO Q6H Y for PAIN, #15 TAB Prov:GÓMEZ LOPES 01/08/17 Ciprofloxacin Hcl* (Ciprofloxacin Hcl*) 500 Mg Tablet, 500 MG PO BID for 10 Days , TAB Prov:GÓMEZ LOPES 01/08/17 Phenazopyridine Hcl* (Pyridium*) 100 Mg Tab, 100 MG PO TID Y for URINARY PAIN, # 8 TAB Prov:GÓMEZ LOPES 11/18/16 Ondansetron Hcl* (Zofran*) 4 Mg Tablet, 4 MG PO Q6H for NAUSEA AND/OR VOMITING, #30 TAB Prov:GÓMEZ LOPES 11/18/16 Ciprofloxacin Hcl* (Ciprofloxacin Hcl*) 500 Mg Tablet, 500 MG PO BID for 10 Days , TAB Prov:GÓMEZ LOPES 11/18/16 Voriconazole* (Voriconazole*) 200 Mg Tablet, 200 MG PO BID for 11 Days, TAB Prov:DENAE CLARKEClifford 10/10/16 Hydrocodone Bit-Acetaminophen (Hydrocodone Bit-APAP) 5-325MG Tablet, 1 TAB PO Q6H Y for PAIN, #30 TAB Prov:DENAE CLARKEClifford 10/10/16 Hydrochlorothiazide* (Hydrochlorothiazide*) 25 Mg Tab, 25 MG PO DAILY for 30 Days, TAB 2 Refills Prov:DENAE CLARKE 10/10/16 Hydralazine Hcl* (Hydralazine Hcl*) 25 Mg Tab, 25 MG PO Q8 for 30 Days, TAB 1 Refill Prov:DENAE CLARKE 10/10/16 Fenofibrate Nanocrystallized* (Fenofibrate*) 48 Mg Tablet, 48 MG PO DAILY for 30 Days, TAB 1 Refill Prov:DENAE CLARKEClifford 10/10/16 Docusate Sodium (Dok) 100 Mg Capsule, 100 MG PO BID for 30 Days, CAP Prov:DENAE CLARKE 10/10/16 Reported Medications Tamsulosin Hcl* (Tamsulosin Hcl*) 0.4 Mg Cap.er.24h, 0.4 MG PO DAILY, CAP 10/05/16 Allergies Allergies: Coded Allergies: No Known Allergy (Unverified , 05/19/17) PMhx/Soc History of Surgery: Yes (c-sec) Anesthesia Reaction: No Hx Neurological Disorder: No Hx Respiratory Disorders: No Hx Cardiac Disorders: Yes (htn) Hx Psychiatric Problems: No Hx Miscellaneous Medical Probl: Yes (kidney stone) Hx Alcohol Use: No Hx Substance Use: No Hx Tobacco Use: No Smoking Status: Never smoker Physical Exam Vitals Vital Signs Date Time Temp Pulse Resp B/P Pulse Ox O2 Delivery O2 Flow Rate FiO2 05/19/17 18:29 97.8 76 20 151/78 100 Physical Exam GENERAL: well-developed/well-nourished, in no apparent distress, non-toxic appearing HENT: NC/AT, moist mucous membranes EYES: Conjunctiva normal NECK: Supple, no lymphadenopathy PULM: CTA bilaterally, no rales, rhonchi, or wheezing heard CV: Normal S1S2, RRR, good capillary refill GI: Soft, non-distended, tender to palpation suprapubic region Normal bowel sounds, no masses or organomegaly felt on exam No gross peritonitis, no bruits Negative Rovsing, negative Serna, negative McBurney's point, Negative CVAT BACK: No masses EXT: No clubbing, cyanosis, or edema NEURO: Alert and Orientated SKIN: Intact, normal turgor PSYCH: Normal mood and mentation Result Diagram: 05/19/17193605/19/171936 Results 24 hrs Laboratory Tests Test 05/19/17 19:10 05/19/17 19:37 Bedside Urine pH (LAB) 6.5 Bedside Urine Protein (LAB) 1+ Bedside Urine Glucose (UA) Negative Bedside Urine Ketones (LAB) Negative Bedside Urine Blood 3+ Bedside Urine Nitrite (LAB) Negative Bedside Urine Leukocyte Esterase (L 2+ White Blood Count 9.010^3/ul Red Blood Count 4.7910^6/ul Hemoglobin 11.7g/dl Hematocrit 37.2% Mean Corpuscular Volume 77.7fl Mean Corpuscular Hemoglobin 24.4pg Mean Corpuscular Hemoglobin Concent 31.5g/dl Red Cell Distribution Width 14.6% Platelet Count 20578^3/UL Mean Platelet Volume 12.3fl Neutrophils % 55.1% Lymphocytes % 33.6% Monocytes % 8.5% Eosinophils % 1.7% Basophils % 0.8% Nucleated Red Blood Cells % 0.0/100WBC Neutrophils # 5.010^3/ul Lymphocytes # 3.010^3/ul Monocytes # 0.810^3/ul Eosinophils # 0.210^3/ul Basophils # 0.110^3/ul Nucleated Red Blood Cells # 0.010^3/ul Sodium Level 143mmol/L Potassium Level 3.8mmol/L Chloride Level 108mmol/L Carbon Dioxide Level 28mmol/L Anion Gap 11 Blood Urea Nitrogen 13mg/dl Creatinine 0.79mg/dl Glucose Level 123mg/dl Calcium Level 9.5mg/dl Total Bilirubin 0.1mg/dl Direct Bilirubin 0.00mg/dl Indirect Bilirubin 0.1mg/dl Aspartate Amino Transf (AST/SGOT) 27IU/L Alanine Aminotransferase (ALT/SGPT) 45IU/L Alkaline Phosphatase 61IU/L Total Protein 7.4g/dl Albumin 4.0g/dl Globulin 3.40g/dl Albumin/Globulin Ratio 1.17 Procedures/MDM 36-year-old female history of nephrolithiasis presents to the emergency department complaining of pelvic pain and dysuria for the past 6 days likely due to a urinary tract infection. Departure Diagnosis: Primary Impression: UTI (urinary tract infection) Condition: Stable Patient Instructions: Understanding Urinary Tract Infections (UTIs) Additional Instructions: Visite a horn jose miguel alegria para un EXAMEN.Regrese a estas instalaciones si no se mejora jose l esperbamos o jose l le dijimos. [place] toda la medicina frank y jose l se le indic. Regrese a estas instalaciones si no se mejora jose l esperbamos o jose l le dijimos. ANGEL BEDOYA PA-C May 19, 2017 19:42
[2017-05-19 20:02] LABS: BASOPHIL # 0.1 10^3/ul (0.0-0.1); BASOPHILS % 0.8 % (0.0-2.0); EOSINOPHILS # 0.2 10^3/ul (0.0-0.5); EOSINOPHILS % 1.7 % (0.0-7.0); HEMATOCRIT 37.2 % (37.0-47.0); HEMOGLOBIN 11.7 g/dl (12.0-16.0); LYMPHOCYTES % 33.6 % (15.0-51.0); MEAN CORPUSCULAR HEMOGLOBIN 24.4 pg (29.0-33.0); MEAN CORPUSCULAR HGB CONC 31.5 g/dl (32.0-37.0); MEAN CORPUSCULAR VOLUME 77.7 fl (82.0-101.0); MEAN PLATELET VOLUME 12.3 fl (7.4-10.4); MONOCYTE # 0.8 10^3/ul (0.3-0.9); MONOCYTES % 8.5 % (0.0-11.0); NEUTROPHILS % 55.1 % (39.0-77.0); PLATELET COUNT 253 10^3/UL (140-415); RED BLOOD COUNT 4.79 10^6/ul (4.20-5.40); RED CELL DISTRIBUTION WIDTH 14.6 % (11.5-14.5)
[2017-05-19 20:21] LABS: ALBUMIN/GLOBULIN RATIO 1.17; BILIRUBIN,INDIRECT 0.1 mg/dl (0-1.1); BILIRUBIN,TOTAL 0.1 mg/dl (0.2-1.3); CALCIUM 9.5 mg/dl (8.4-10.2); CREATININE 0.79 mg/dl (0.44-1.00); POTASSIUM 3.8 mmol/L (3.5-5.1); TOTAL PROTEIN 7.4 g/dl (6.1-8.1)
--- NOTE | 2017-05-19 20:44 | RADRPT ---
PROCEDURE: Renal US. CLINICAL INDICATION: Flank pain. TECHNIQUE: Multiple sonographic images of the kidneys and urinary bladder were obtained. The imag es were reviewed on a PACS workstation. COMPARISON: CT scan of the abdomen and pelvis dated 03/19/2018 which demonstrated multiple bilater al nonobstructing renal calculi. FINDINGS: The right kidney measures 9.4 x 5.2 x 5.9 cm. The left kidney measures 10.0 x 5.5 x 5.1 cm. There is no renal mass. There is no right hydronephrosis. There is mild left hydronephrosis. There is a nonobstructing bilateral renal calculi with the largest on the right measuring 1.5 cm and the largest on the left measuring 1.6 cm. Renal parenchymal thickness is normal bilaterally. Echogenicity is normal bilaterally. The perirenal regions are normal with no fluid collection or mass. The urinary bladder is unremarkable. IMPRESSION: 1. Mild left hydronephrosis. 2. Nonobstructing bilateral renal calculi. 3. Otherwise unremarkable study. RPTAT: QQ .Timmy Cope MD, Date Time Electronically viewed and signed by .Timmy Cope MD, on 05/19/2017 20:44 .R/
== END 2017-05-19 21:04 | disposition home or self-care (01) ==
LOC: FTE 18:22
DX: N39.0 Urinary tract infection, site not specified (principal); I10 Essential (primary) hypertension
CPT/HCPCS: 76775; 80053; 81003; 85025; Z7502

== ENCOUNTER 2017-06-01 22:08 | Emergency (ER) | payer OTHER ==
[~2017-06-01] VITALS: Ht 157.5 cm; Wt 85.5 kg
[~2017-06-01 22:08] MED LIST changes: +CEPH-443 PO; +PHEN-538 PO
[2017-06-01 22:11] VITALS: Ht 157.5 cm; Wt 85.5 kg
[2017-06-02] MEDS ORDERED: KETOROLAC 30 MG INJ IV STA (00:29)
[2017-06-02] MEDS ORDERED: SOD CHLORIDE 0.9% 1,000 ML IV STA (00:29)
[2017-06-02 01:12] LABS: BASOPHIL # 0.1 10^3/ul (0.0-0.1); BASOPHILS % 0.6 % (0.0-2.0); EOSINOPHILS # 0.2 10^3/ul (0.0-0.5); EOSINOPHILS % 2.3 % (0.0-7.0); HEMATOCRIT 36.4 % (37.0-47.0); HEMOGLOBIN 11.9 g/dl (12.0-16.0); LYMPHOCYTES # 3.6 10^3/ul (0.8-2.9); LYMPHOCYTES % 40.7 % (15.0-51.0); MEAN CORPUSCULAR HEMOGLOBIN 25.1 pg (29.0-33.0); MEAN CORPUSCULAR HGB CONC 32.7 g/dl (32.0-37.0); MEAN CORPUSCULAR VOLUME 76.8 fl (82.0-101.0); MONOCYTE # 0.8 10^3/ul (0.3-0.9); MONOCYTES % 9.2 % (0.0-11.0); NEUTROPHIL # 4.2 10^3/ul (1.6-7.5); NEUTROPHILS % 46.9 % (39.0-77.0); PLATELET COUNT 287 10^3/UL (140-415); RED BLOOD COUNT 4.74 10^6/ul (4.20-5.40); RED CELL DISTRIBUTION WIDTH 14.2 % (11.5-14.5); WHITE BLOOD COUNT 8.8 10^3/ul (4.8-10.8)
[2017-06-02] MEDS ORDERED: morphine 4 MG/ML VIAL IV STA (01:14)
[2017-06-02 01:26] LABS: ADD UMIC YES; UR ASCORBIC ACID NEGATIVE (NEGATIVE); UR BACTERIA FEW /HPF (NONE SEEN); UR BILIRUBIN (Dip) NEGATIVE (NEGATIVE); UR BLOOD (Dip) 2+ mg/dL (NEGATIVE); UR CLARITY CLEAR (CLEAR); UR COLOR YELLOW (YELLOW); UR GLUCOSE (Dip) NEGATIVE (NEGATIVE); UR KETONES (Dip) NEGATIVE (NEGATIVE); UR LEUKOCYTE ESTERASE (Dip) 1+ Leu/ul (NEGATIVE); UR NITRITE (Dip) NEGATIVE (NEGATIVE); UR RBC 109 /HPF (0-5); UR SPECIFIC GRAVITY (Dip) 1.011 (1.003-1.030); UR SQUAMOUS EPITHELIAL CELL FEW /HPF (FEW); UR TOTAL PROTEIN (Dip) NEGATIVE (NEGATIVE); UR UROBILINOGEN (Dip) NEGATIVE (NEGATIVE)
[2017-06-02 01:32] LABS: ALBUMIN 4.1 g/dl (3.3-4.9); ALBUMIN/GLOBULIN RATIO 1.41; BILIRUBIN,INDIRECT 0.1 mg/dl (0-1.1); BILIRUBIN,TOTAL 0.1 mg/dl (0.2-1.3); CALCIUM 9.4 mg/dl (8.4-10.2); CREATININE 0.74 mg/dl (0.44-1.00)
--- NOTE | 2017-06-02 01:59 | RADRPT ---
PROCEDURE: Renal US. CLINICAL INDICATION: Bilateral flank pain. TECHNIQUE: Multiple sonographic images of the kidneys and urinary bladder were obtained. The imag es were reviewed on a PACS workstation. COMPARISON: Renal ultrasound dated 05/19/2017. FINDINGS: The kidneys are well visualized. The right kidney measures 10.2 cm. The left kidney measures 10.0 cm . There are no focal areas of abnormal echogenicity. There is no evidence for obstructive uropathy. There are nonobstructing stones in both kidneys measuring up to 1.6 cm on the right and 1.2 cm on th e left. The urinary bladder is normal in appearance. IMPRESSION: 1. No hydronephrosis. 2. Nonobstructing stones in both kidneys measuring up to 1.6 cm on the right and 1.2 cm on the left . 3. Normal appearance of the urinary bladder. RPTAT: HTAR .Robbin Griggs MD, MD Date Time Electronically viewed and signed by .Robbin Griggs MD, on 06/02/2017 01:59 .R/
[2017-06-02] MEDS ORDERED: NAPR-260 PO (02:22)
[2017-06-02] MEDS ORDERED: TAMS-14 PO (02:22)
[2017-06-02] MEDS ORDERED: CEFTRIAXONE 1 GM/50 ML (PMX) 50 ML IVPB ONE ×2 (02:22→02:30)
[2017-06-02] MEDS ORDERED: CIPR500T4 PO (02:22)
[2017-06-02] MEDS ORDERED: CEFTRIAXONE 1 GM INJ IVPB ONE (02:30)
--- NOTE | 2017-06-02 02:30 | ERD ---
ER Documentation Chief Complaint Date/Time DATE: 06/02/17 TIME: 02:25 Chief Complaint pelvic pain x 2 days HPI 36-year-old female patient with no significant past medical history presents to the ED complaining of flank pain that radiates to her suprapubic abdominal region that started 2 days ago. Patient has been taking ibuprofen. Reports that she has been having dysuria. Patient was seen here on May 19, 2017. Denies any chest pain, shortness of breath, wheezing, abdominal pain, nausea, vomiting, diarrhea, constipation. ROS All systems reviewed and are negative except as per history of present illness. Medications Home Meds Active Scripts Tamsulosin Hcl* (Flomax*) 0.4 Mg Cap.er.24h, 0.4 MG PO QPM, #30 CAP Prov:DANDY MORALES PA-C 06/02/17 Naproxen* (Naprosyn*) 500 Mg Tablet, 500 MG PO BID Y for PAIN AND/OR INFLAMMATION, #30 TAB Prov:DANDY MORALES PA-C 06/02/17 Ciprofloxacin Hcl* (Ciprofloxacin Hcl*) 500 Mg Tablet, 500 MG PO BID for 10 Days , TAB Prov:DANDY MORALES PA-C 06/02/17 Phenazopyridine Hcl* (Pyridium*) 200 Mg Tab, 200 MG PO TID Y for URINARY PAIN, # 6 TAB Prov:ANGEL BEDOYA PA-C 05/19/17 Cephalexin* (Keflex*) 500 Mg Capsule, 500 MG PO TID for 7 Days, CAP Prov:ANGEL BEDOYA PA-C 05/19/17 Ibuprofen* (Motrin*) 800 Mg Tab, 800 MG PO Q6H Y for PAIN AND OR ELEVATED TEMP, #30 TAB Prov:CHETAN GUDINO 03/19/17 Ondansetron (Ondansetron Odt) 4 Mg Tab.rapdis, 4 MG PO Q6H Y for NAUSEA AND/OR VOMITING, #10 TAB Prov:DANDY MORALES PA-C 03/08/17 Ibuprofen* (Motrin*) 600 Mg Tab, 600 MG PO Q6, #30 TAB take with food Prov:DANDY MORALES PA-C 03/08/17 Tamsulosin Hcl* (Flomax*) 0.4 Mg Cap.er.24h, 0.4 MG PO QPM, #20 CAP Prov:DANDY MORALES PA-C 03/08/17 Ciprofloxacin Hcl* (Ciprofloxacin Hcl*) 500 Mg Tablet, 500 MG PO BID for 10 Days , TAB Prov:DANDY MORALES PA-C 03/08/17 Ondansetron Hcl* (Zofran*) 4 Mg Tablet, 4 MG PO Q6H for NAUSEA AND/OR VOMITING, #30 TAB Prov:GÓMEZ LOPES 01/08/17 Hydrocodone/Acetaminophen ([place] 5-325 Tablet) 1 Each Tablet, 1 TAB PO Q6H Y for PAIN, #15 TAB Prov:GÓMEZ LOPES 01/08/17 Ciprofloxacin Hcl* (Ciprofloxacin Hcl*) 500 Mg Tablet, 500 MG PO BID for 10 Days , TAB Prov:GÓMEZ LOPES 01/08/17 Phenazopyridine Hcl* (Pyridium*) 100 Mg Tab, 100 MG PO TID Y for URINARY PAIN, # 8 TAB Prov:GÓMEZ LOPES 11/18/16 Ondansetron Hcl* (Zofran*) 4 Mg Tablet, 4 MG PO Q6H for NAUSEA AND/OR VOMITING, #30 TAB Prov:GÓMEZ LOPES 11/18/16 Ciprofloxacin Hcl* (Ciprofloxacin Hcl*) 500 Mg Tablet, 500 MG PO BID for 10 Days , TAB Prov:GÓMEZ LOPES 11/18/16 Voriconazole* (Voriconazole*) 200 Mg Tablet, 200 MG PO BID for 11 Days, TAB Prov:DENAE CLARKE 10/10/16 Hydrocodone Bit-Acetaminophen (Hydrocodone Bit-APAP) 5-325MG Tablet, 1 TAB PO Q6H Y for PAIN, #30 TAB Prov:DENAE CLARKE 10/10/16 Hydrochlorothiazide* (Hydrochlorothiazide*) 25 Mg Tab, 25 MG PO DAILY for 30 Days, TAB 2 Refills Prov:DENAE CLARKE 10/10/16 Hydralazine Hcl* (Hydralazine Hcl*) 25 Mg Tab, 25 MG PO Q8 for 30 Days, TAB 1 Refill Prov:DENAE CLARKE 10/10/16 Fenofibrate Nanocrystallized* (Fenofibrate*) 48 Mg Tablet, 48 MG PO DAILY for 30 Days, TAB 1 Refill Prov:DENAE CLARKE. 10/10/16 Docusate Sodium (Dok) 100 Mg Capsule, 100 MG PO BID for 30 Days, CAP Prov:DENAE CLARKE. 10/10/16 Reported Medications Tamsulosin Hcl* (Tamsulosin Hcl*) 0.4 Mg Cap.er.24h, 0.4 MG PO DAILY, CAP 10/05/16 Allergies Allergies: Coded Allergies: No Known Allergy (Unverified , 05/19/17) PMhx/Soc History of Surgery: Yes () Anesthesia Reaction: No Hx Neurological Disorder: No Hx Respiratory Disorders: No Hx Cardiac Disorders: Yes (HTN) Hx Psychiatric Problems: No Hx Miscellaneous Medical Probl: Yes (Nephrolithiasis) Hx Alcohol Use: No Hx Substance Use: No Hx Tobacco Use: No Smoking Status: Never smoker Physical Exam Vitals Vital Signs Date Time Temp Pulse Resp B/P Pulse Ox O2 Delivery O2 Flow Rate FiO2 06/02/17 01:32 65 17 136/85 97 Room Air 06/01/17 22:11 97.6 78 20 165/70 100 Physical Exam Const: [id number], well-nourished. In no acute distress. Head: Atraumatic, normocephalic Eyes: Normal Conjunctiva without injection. No purulent discharge. ENT: Normal external ear, nose. Moist oropharynx without tonsillar exudates. Non -erythematous pharynx. Uvula midline. No drooling. No trismus. Neck: No cervical midline tenderness. Full range of motion. No meningismus. No cervical lymphadenopathy. No JVD. Resp: Clear to auscultation bilaterally. No wheezing, rhonchi, rales, or crackles. No accessory muscle use. No retractions. Cardio: Regular rate and rhythm. No murmurs, rubs or gallops. Abd: Soft, suprapubic tenderness, non distended. Normal bowel sounds. No palpable masses. No rebound tenderness. No guarding. Negative McBurney's point. Negative psoas sign. Negative obturator sign. Skin: No petechiae or rashes Back: No midline tenderness. No CVA tenderness. Ext: No cyanosis, or edema. Neur: Awake and alert. Normal gait. Normal coordination. Psych: Normal Mood and Affect Result Diagram: 06/02/17 0045 06/02/17 0045 Results 24 hrs Laboratory Tests Test 06/02/17 00:40 06/02/17 00:45 Urine Color YELLOW Urine Clarity CLEAR Urine pH 7.0 Urine Specific [place] 1.011 Urine Ketones NEGATIVEmg/dL Urine Nitrite NEGATIVEmg/dL Urine Bilirubin NEGATIVEmg/dL Urine Urobilinogen NEGATIVEmg/dL Urine Leukocyte Esterase 1+Camille/ul Urine Microscopic RBC 109/HPF Urine Microscopic WBC 14/HPF Urine Squamous Epithelial Cells FEW/HPF Urine Bacteria FEW/HPF Urine Hemoglobin 2+mg/dL Urine Glucose NEGATIVEmg/dL Urine Total Protein NEGATIVEmg/dl White Blood Count 8.810^3/ul Red Blood Count 4.7410^6/ul Hemoglobin 11.9g/dl Hematocrit 36.4% Mean Corpuscular Volume 76.8fl Mean Corpuscular Hemoglobin 25.1pg Mean Corpuscular Hemoglobin Concent 32.7g/dl Red Cell Distribution Width 14.2% Platelet Count 69328^3/UL Mean Platelet Volume 12.0fl Neutrophils % 46.9% Lymphocytes % 40.7% Monocytes % 9.2% Eosinophils % 2.3% Basophils % 0.6% Nucleated Red Blood Cells % 0.0/100WBC Neutrophils # 4.210^3/ul Lymphocytes # 3.610^3/ul Monocytes # 0.810^3/ul Eosinophils # 0.210^3/ul Basophils # 0.110^3/ul Nucleated Red Blood Cells # 0.010^3/ul Sodium Level 142mmol/L Potassium Level 4.0mmol/L Chloride Level 106mmol/L Carbon Dioxide Level 28mmol/L Anion Gap 12 Blood Urea Nitrogen 12mg/dl Creatinine 0.74mg/dl Glucose Level 94mg/dl Calcium Level 9.4mg/dl Total Bilirubin 0.1mg/dl Direct Bilirubin 0.00mg/dl Indirect Bilirubin 0.1mg/dl Aspartate Amino Transf (AST/SGOT) 29IU/L Alanine Aminotransferase (ALT/SGPT) 45IU/L Alkaline Phosphatase 50IU/L Total Protein 7.0g/dl Albumin 4.1g/dl Globulin 2.90g/dl Albumin/Globulin Ratio 1.41 Lipase 90U/L Current Medications Medications (Trade) Dose Ordered Sig/Gloria Route PRN Reason Start Time Stop Time Status Last Admin Dose Admin Sodium Chloride (NS) 1,000 ml @ 1,000 mls/hr Q1H STAT IV 06/02/17 00:29 06/02/17 01:28 DC 06/02/17 00:55 Ketorolac Tromethamine (Toradol) 30 mg ONCE STAT IV 06/02/17 00:29 06/02/17 00:31 DC 06/02/17 00:55 Morphine Sulfate (morphine) 4 mg ONCE STAT IV 06/02/17 01:14 06/02/17 01:15 DC 06/02/17 01:19 Ceftriaxone Sodium 1 gm 1 gm ONCE ONCE IVPB 06/02/17 02:30 06/02/17 02:30 DC Ceftriaxone Sodium 50 ml @ 100 mls/hr ONCE ONCE IVPB 06/02/17 02:30 06/02/17 02:59 DC 06/02/17 02:24 Ceftriaxone Sodium (Rocephin) 50 ml @ ud STK-MED ONCE IVPB 06/02/17 02:22 06/02/17 02:23 DC Procedures/MDM 36-year-old female patient with no significant past medical history presents to the ED complaining of bilateral flank pain that radiates to her lower abdomen. Patient is afebrile and nontoxic-appearing. Patient has normal vital signs. Patient's blood pressure was 165/70. Patient's blood pressure was elevated (> 120/80) but appears stable without evidence of hypertension emergency or urgency. The patient was counseled about the risks of hypertension and urged to pursue outpatient monitoring and therapy within a week with their primary care physician. Patient was further worked up with CBC, CMP, lipase, UA, renal ultrasound. Patient's pain and symptoms have improved after treatment with 4 mg IV morphine , 30 mg IV Ketoralac, 1 L normal saline. CBC: No leukocytosis. No e/o of systemic infection. No e/o anemia. CMP: No e/o severe acidosis, alkalosis, renal failure, diabetic ketoacidosis, liver disease Lipase within normal limits. Urine: 1+ leukocyte esterase, 2+ hematuria noted. Urine : Negative PROCEDURE: Renal US. CLINICAL INDICATION: Bilateral flank pain. TECHNIQUE: Multiple sonographic images of the kidneys and urinary bladder were obtained. The images were reviewed on a PACS workstation. COMPARISON: Renal ultrasound dated 05/19/2017. FINDINGS: The kidneys are well visualized. The right kidney measures 10.2 cm. The left kidney measures 10.0 cm. There are no focal areas of abnormal echogenicity. There is no evidence for obstructive uropathy. There are nonobstructing stones in both kidneys measuring up to 1.6 cm on the right and 1.2 cm on the left. The urinary bladder is normal in appearance. IMPRESSION: 1. No hydronephrosis. 2. Nonobstructing stones in both kidneys measuring up to 1.6 cm on the right and 1.2 cm on the left. 3. Normal appearance of the urinary bladder. Patient has a nephrolithiasis that is 1.6 cm on the right and 1.2 cm on the left with urinary tract infection. Low suspicion for septic renal stone, ectopic , ovarian torsion, gastritis, GERD, peptic ulcer disease, cholecystitis, choledocholithiasis, cholangitis, pancreatitis, appendicitis, bowel obstruction, ileus, volvulus, hepatitis, perforated viscus, diverticulitis , strangulated/incarcerated hernia, DKA, acute abdomen, mesenteric ischemia or other emergent conditions. Discharge medications: Tamsulosin, Naproxen, Ciprofloxacin Follow up with primary care physician in 1-2 days for referral to urologist. Instructed patient to return to the ED sooner for any worsening symptoms. Patient's questions were answered. Patient understood and agreed with discharge plan. Patient discharged stable. Departure Diagnosis: Primary Impression: Nephrolithiasis Condition: Stable Patient Instructions: Urinary Tract Infections in Women, Kidney Stone W/ Colic Referrals: [facility] Usted se canchola hecho un examen mdico de control que le indica que no est en estuardo condicin que requiera tratamiento urgente en el Departamento de Emergencia. Un estudio ms profundo y el tratamiento de horn condicin pueden esperar sin ningn riesgo hasta que usted sea atendida/o en el consultorio de horn mdico o estuardo cl erick. Es responsabilidad suya arreglar estuardo malu para el seguimiento del kiran. MANEJO DE CONDICIONES NO URGENTES EN EL FUTURO 1) Si usted tiene un mdico de atencin primaria: Usted debera llamar a horn mdico de atencin primaria antes de venir al departamento de emergencia. Despus de las horas de consultorio, horn doctor o horn asociado/a est disponible por telfono. El mdico o enfermero de elham en el servicio telefnico puede asesorarle por kirt medio para atender el problema, o kiran contrario se puede programar estuardo malu. 2) Si usted no tiene un mdico de atencin primaria: Llame al mdico o clnica de referencia que aparece abajo baudilio las horas de consultorio para hacer estuardo malu para que le vean. CLINICAS: [facility] [phone] [facility] [phone] [facility] [phone] [facility] [phone] [facility] [phone] [facility]. [phone] [address] [facility]. [facility] () U[place]la se canchola hecho un examen mdico de control que le indica que no est en estuardo condicin que requiera tratamiento urgente en el Departamento de Emergencia. Un estudio ms profundo y el tratamiento de horn condicin pueden esperar sin ningn riesgo hasta que usted sea atendida/o en el consultorio de horn mdico o estuardo cl erick. Es responsabilidad suya arreglar estuardo malu para el seguimiento del kiran. MANEJO DE CONDICIONES NO URGENTES EN EL FUTURO 1) Si usted tiene un mdico de atencin primaria: Usted debera llamar a horn mdico de atencin primaria antes de venir al departamento de emergencia. Despus de las horas de consultorio, horn doctor o horn asociado/a est disponible por telfono. El mdico o enfermero de elham en el servicio telefnico puede asesorarle por kirt medio para atender el problema, o kiran contrario se puede programar estuardo malu. 2) Si usted no tiene un mdico de atencin primaria: Llame al mdico o condado institucions de referencia que aparece abajo baudilio las horas de consultorio para hacer estuardo malu para que le vean. SI USTED NO PUEDE PAGAR PARA ISMAEL UN MEDICO puede ir a: [facility] [id number] [place] [address] [facility] [address] [place] [address] [facility] [address] [place] [address] [facility] [address] [place], [place] [id number] Additional Instructions: No juegue los deportes o el levantamiento pesado mientras que sun ciprofloxacin Llame al doctor MAANA y ana estuardo MALU PARA DENTRO DE 2-3 LUNA para estuardo remisi n a un urlogo para horn evaluacin y tratamiento. Dgale a la secretaria que nosotros le instruimos hacer esta malu.Avise o llame si horn condicin se empeora antes de la malu. Regresa aqui si peor o no mejor. DANDY MORALES PA-C Jun 02, 2017 02:30
[2017-06-02 02:53] VITALS: BP 150/91; PULSE 73; RESP 20; TEMP 97.5
== END 2017-06-02 02:58 | disposition home or self-care (01) ==
LOC: FTE 22:08
DX: N20.0 Calculus of kidney (principal); I10 Essential (primary) hypertension
CPT/HCPCS: 36415; 76775; 80053; 81001; 83690; 85025; 87086; 96374; 96375; J0696; J1885; J2270; J7030; Z7502

== ENCOUNTER 2017-07-28 09:08 | Day surgery (SDC) | payer OTHER ==
[2017-07-28] VITALS (22 sets, daily range): BP systolic 122–155; BP diastolic 68–87; PULSE 58–88; RESP 17–33; Ht 149.9 cm; Wt 89.0 kg
[~2017-07-28] VITALS: Ht 149.9 cm; Wt 89.0 kg
[~2017-07-28 09:08] MED LIST changes: +CEFAZOLIN 1 GM INJ ONE; +NAPR-260 PO
--- NOTE | 2017-07-28 11:33 | HPN ---
Date/Time of Note Date/Time of Note DATE: 07/28/17 TIME: 11:33 Interval H&P Admission Note Pt. seen H&P reviewed: No system changes SANDY MARIE MD Jul 28, 2017 11:33
[2017-07-28] MEDS ORDERED: SUCCINYLCHOLINE CHLORIDE 100 MG/5 ML SYG IV ONE (12:01)
[2017-07-28] MEDS ORDERED: MEPERIDINE 100 MG INJ ONE (12:01)
[2017-07-28] MEDS ORDERED: NEOSTIGMINE 3 MG/3 ML SYRINGE ONE ×2 (12:01→12:30)
[2017-07-28] MEDS ORDERED: ROCURONIUM 50 MG INJ ONE (12:01)
[2017-07-28] MEDS ORDERED: LIDOCAINE 2% (SDV) 5 ML INJ ONE (12:01)
[2017-07-28] MEDS ORDERED: PROPOFOL 20 ML ONE (12:01)
[2017-07-28] MEDS ORDERED: GLYCOPYRROLATE 0.4 MG INJ ONE ×2 (12:01→12:30)
[2017-07-28] MEDS ORDERED: EPHEDrine SULFATE 50 MG/5 ML SYG IV PRN (12:30)
[2017-07-28] MEDS ORDERED: MIDAZOLAM 1 MG/ML 2 ML INJ IV PRN (12:30)
[2017-07-28] MEDS ORDERED: DIPHENHYDRAMINE 50 MG INJ IV PRN (12:30)
[2017-07-28] MEDS ORDERED: METOCLOPRAMIDE 10 MG INJ IV PRN (12:30)
[2017-07-28] MEDS ORDERED: MEPERIDINE 25 MG INJ IV PRN (12:30)
[2017-07-28] MEDS ORDERED: ONDANSETRON 4 MG INJ IV PRN ×2 (12:30→14:00)
[2017-07-28] MEDS ORDERED: hydrALAzine 20 MG INJ IV PRN (12:30)
[2017-07-28] MEDS ORDERED: HYDROmorphONE (0.2 MG/ML) 10ML SYG IV PRN ×3 (12:30)
[2017-07-28] MEDS ORDERED: FENTAnyl 50 MCG/ML VIAL IV PRN ×3 (12:30)
[2017-07-28] MEDS ORDERED: METOCLOPRAMIDE 10 MG INJ ONE (12:30)
[2017-07-28] MEDS ORDERED: ONDANSETRON 4 MG INJ ONE (12:30)
[2017-07-28] MEDS ORDERED: LABETALOL HCL 20MG INJ IV PRN (12:30)
[2017-07-28] MEDS ORDERED: OXYCODONE/ACETAMINOPHEN (5/325) TAB PO PRN ×2 (12:30)
--- NOTE | 2017-07-28 13:58 | OPR ---
Date/Time of Note Date/Time of Note DATE: 07/28/17 TIME: 13:51 Operative Report Procedure Date: Jul 28, 2017 Preoperative Diagnosis Large right renal stone Postoperative Diagnosis Large right renal stone Operation/Procedure Performed Right extracorporeal shockwave lithotripsy, cystoscopy and insertion of right ureteral JJ stent 6 Malaysian by 24 cm long Surgeon see signature line Remote Broadcast Engineer None Anesthesia Type: general Anesthesiologist: JIMMY LEONARD MD Estimated Blood Loss: none Transfusion none Specimen Urine for culture and sensitivity Grafts/Implants none Tubes/Drains Right ureteral JJ stent 6 Malaysian by 24 cm long Complications none Pt Condition Post Procedure: stable Disposition: PACU Indications Large right renal stone Procedure Description The patient was brought to the operating room and positioned in the supine position on the lithotripsy machine table. She was given general endotracheal anesthesia. She was given 2 g of Ancef IV at the start of the procedure. Timeout was done and the patient was identified by her name, birthdate, the procedure and the side of the procedure. The patient was first positioned in the lithotomy position and the genital area was prepped and draped in the usual sterile manner. #21 Malaysian cystoscope sheath was introduced into the bladder and urine was collected for culture and sensitivity. The right ureteral orifice was then cannulated with a 5 Malaysian open ended ureteral catheter and a 0.035 zip wire was passed through the open ended all the way up to the kidney once it reached the kidney the open-ended was removed then on the zip wire I first tried to insert a 6 Malaysian by 22 cm long JJ stent however the proximal end of the stent would not curl and it appeared to be a little short and that is most likely because the stone was not allowing it to curl in the renal pelvis. Therefore I used a 6 Malaysian by 24 cm long stent and advanced it on the zip wire and had its proximal and curling into the kidney about the stone in the distal end curling into the bladder. Then the patient was repositioned in the supine position and adjusted so the stone could be visualized on both planes of the lithotripsy machine. Then the lithotripsy was done and the position of the stone was checked regularly every 3-400 shockwaves. The energy started with 1 KV up to 7 KV. A total of 3000 shockwaves were delivered to the stone. The stone appeared to have broken very well and it has expanded down toward the lower pole calyx. The patient tolerated the procedure well and was transferred to the recovery room in a stable and satisfactory condition. SANDY MARIE MD Jul 28, 2017 13:58
[2017-07-28] MEDS ORDERED: HYDROCODONE/APAP (5/325) TAB PO PRN (14:00)
--- NOTE | 2017-07-29 10:55 | RADRPT ---
PROCEDURE: XR Abdomen. CLINICAL INDICATION: ESWL with right ureteral stent placement. TECHNIQUE: AP abdomen x-ray. COMPARISON: 10/06/2016 FINDINGS: There is a right ureteral stent in place. Previously seen 1.4 cm stone in the right kidney is less w ell visualized, possibly fragmented from ESWL. Other small renal calculi are also seen. Bowel gas pa ttern is nonspecific without evidence of obstruction or free air.. The osseous structures are unrem arkable. IMPRESSION: Placement of right-sided ureteral stent. Multiple right renal stones or fragmented calculi. RPTAT: QQ .Anup Wall MD, MD Date Time Electronically viewed and signed by .Anup Wall MD, on 07/29/2017 10:55 .L/
--- NOTE | 2017-07-29 10:56 | RADRPT ---
PROCEDURE: Fluoroscopy CLINICAL INDICATION: ESWL. Right ureteral stent placement. TECHNIQUE: 123 seconds fluoroscopic time utilized by Dr. Kate for procedure. 28 images/sequences of are submitted. COMPARISON: None FINDINGS: Right ureteral stent placement is demonstrated. IMPRESSION: Fluoroscopy utilized by Dr. Kate for procedure Please see procedural report for complete details. RPTAT: QQ .Anup Wall MD, Date Time Electronically viewed and signed by .Anup Wall MD, on 07/29/2017 10:56 .L/
== END 2017-07-28 16:09 | disposition home or self-care (01) ==
LOC: SDS 09:08
PROVIDERS: ATTEND Urology
DX: N20.0 Calculus of kidney (principal); E11.9 Type 2 diabetes mellitus without complications; I10 Essential (primary) hypertension; E78.5 Hyperlipidemia, unspecified; E66.01 Morbid (severe) obesity due to excess calories; Z68.39 Body mass index [BMI] 39.0-39.9, adult
CPT/HCPCS: 52356; 74000; 74430; 82962; 87086; C2617; J0690; J2175; J2405; J2710; J2765; J3010; Z7512; Z7610

== ENCOUNTER 2017-09-02 17:02 | Emergency (ER) | END 2017-09-02 23:00 | disposition home or self-care (01) ==

== ENCOUNTER 2018-05-13 21:10 | Emergency (ER) | END 2018-05-14 02:20 | disposition home or self-care (01) ==

== ENCOUNTER 2019-02-14 20:49 | Emergency (ER) | payer OTHER ==
[~2019-02-14] VITALS: Ht 154.9 cm; Wt 85.5 kg
[~2019-02-14 20:49] MED LIST changes: -CEFAZOLIN 1 GM INJ ONE; -HYDR-3498 PO; +HYDR-3601 PO; +HYDR-4011 PO; -HYDR-906 PO; -IBUP800T25 PO; +IBUP800T48 PO; -NAPR-260 PO; +NAPR-985 PO
[2019-02-14 20:52] VITALS: Ht 154.9 cm; Wt 85.5 kg
--- NOTE | 2019-02-14 21:07 | ERD ---
ER Documentation Chief Complaint Chief Complaint pt reports L CP that radiate to L arm x 2 hours and flank pain HPI This is a 38-year-old woman triaged as having left-sided chest pain although she points to her left shoulder and states the pain began there earlier today and radiates to the left upper back. She denies chest pain or shortness of breath, states the pain in the shoulder and back is worse with movement of the left upper extremity. She states she has had similar symptoms in the past and has not used any analgesics today. Patient also has a chronic history of flank pain that she has almost every day and a long history of bilateral nephrolithiasis. Patient denies hematuria or dysuria, no fevers or chills, no cough, no headache or blurry vision, no complaints of paresis or paresthesias. ROS All systems reviewed and are negative except as per history of present illness. Medications Home Meds Active Scripts Cyclobenzaprine Hcl* (Cyclobenzaprine Hcl*) 10 Mg Tablet, 10 MG PO TID PRN for MUSCLE SPASMS, #15 TAB Prov:LYN GRAHAM MD 02/14/19 Naproxen* (Naprosyn*) 500 Mg Tablet, 500 MG PO BID PRN for PAIN AND/OR INFLAMMATION, #30 TAB Prov:LYN GRAHAM MD 02/14/19 Hydrochlorothiazide* (Hydrochlorothiazide*) 25 Mg Tab, 25 MG PO DAILY for 30 Days, TAB 2 Refills Prov:DENAE CLARKE 10/10/16 Reported Medications Losartan Potassium* (Losartan Potassium*) 50 Mg Tablet, 50 MG PO DAILY, TAB 02/14/19 Discontinued Reported Medications Tamsulosin Hcl* (Tamsulosin Hcl*) 0.4 Mg Cap.er.24h, 0.4 MG PO DAILY, CAP 10/05/16 Discontinued Scripts Ibuprofen* (Motrin*) 600 Mg Tab, 600 MG PO Q6, #15 TAB Prov:HUSSAIN HELLER MD 09/25/18 Cephalexin* (Keflex*) 500 Mg Capsule, 500 MG PO QID for 5 Days, CAP Prov:HUSSAIN HELLER MD 09/25/18 Ondansetron (Ondansetron Odt) 4 Mg Tab.rapdis, 4 MG PO Q6H PRN for NAUSEA AND/OR VOMITING, #10 TAB Prov:ZOE WASHINGTON. 05/14/18 Hydrocodone/Acetaminophen (Godfrey 5-325 Tablet) 1 Each Tablet, 1 TAB PO Q6H PRN for PAIN, #7 TAB Prov:ZOE WASHINGTON. 05/14/18 Ciprofloxacin Hcl* (Ciprofloxacin Hcl*) 500 Mg Tablet, 500 MG PO BID for 7 Days, TAB Prov:ZOE WASHINGTON. 05/14/18 Ciprofloxacin Hcl* (Ciprofloxacin Hcl*) 500 Mg Tablet, 500 MG PO BID for 7 Days, TAB Prov:ZOE WASHINGTON. 09/02/17 Tamsulosin Hcl* (Flomax*) 0.4 Mg Cap.er.24h, 0.4 MG PO QPM, #30 CAP Prov:DANDY MORALES PA-C 06/02/17 Naproxen* (Naprosyn*) 500 Mg Tablet, 500 MG PO BID PRN for PAIN AND/OR INF LAMMATION, #30 TAB Prov:DANDY MORALES PA-C 06/02/17 Ciprofloxacin Hcl* (Ciprofloxacin Hcl*) 500 Mg Tablet, 500 MG PO BID for 10 Days, TAB Prov:DANDY MORALES PA-C 06/02/17 Phenazopyridine Hcl* (Pyridium*) 200 Mg Tab, 200 MG PO TID PRN for URINARY PAIN, #6 TAB Prov:ANGEL BEDOYA PA-C 05/19/17 Cephalexin* (Keflex*) 500 Mg Capsule, 500 MG PO TID for 7 Days, CAP Prov:ANGEL BEDOYA PA-C 05/19/17 Ibuprofen* (Motrin*) 800 Mg Tab, 800 MG PO Q6H PRN for PAIN AND OR ELEVATED TEMP, #30 TAB Prov:CHETAN GUDINO MD 03/19/17 Ondansetron (Ondansetron Odt) 4 Mg Tab.rapdis, 4 MG PO Q6H PRN for NAUSEA AND/OR VOMITING, #10 TAB Prov:DANDY MORALES PA-C 03/08/17 Ibuprofen* (Motrin*) 600 Mg Tab, 600 MG PO Q6, #30 TAB take with food Prov:DANDY MORALES PA-C 03/08/17 Tamsulosin Hcl* (Flomax*) 0.4 Mg Cap.er.24h, 0.4 MG PO QPM, #20 CAP Prov:DANDY MORALES PA-C 03/08/17 Ciprofloxacin Hcl* (Ciprofloxacin Hcl*) 500 Mg Tablet, 500 MG PO BID for 10 Days, TAB Prov:ANDREWDANDY Tatum LEMA 03/08/17 Ondansetron Hcl* (Zofran*) 4 Mg Tablet, 4 MG PO Q6H for NAUSEA AND/OR VOMITING, #30 TAB Prov:GÓMEZ LOPES 01/08/17 Hydrocodone/Acetaminophen (Godfrey 5-325 Tablet) 1 Each Tablet, 1 TAB PO Q6H PRN for PAIN, #15 TAB Prov:GÓMEZ LOPES 01/08/17 Ciprofloxacin Hcl* (Ciprofloxacin Hcl*) 500 Mg Tablet, 500 MG PO BID for 10 Days, TAB Prov:GÓMEZ LOPES 01/08/17 Phenazopyridine Hcl* (Pyridium*) 100 Mg Tab, 100 MG PO TID PRN for URINARY PAIN, #8 TAB Prov:GÓMEZ LOPES 11/18/16 Ondansetron Hcl* (Zofran*) 4 Mg Tablet, 4 MG PO Q6H for NAUSEA AND/OR VOMITING, #30 TAB Prov:GÓMEZ LOPES 11/18/16 Ciprofloxacin Hcl* (Ciprofloxacin Hcl*) 500 Mg Tablet, 500 MG PO BID for 10 Days, TAB Prov:GÓMEZ LOPES 11/18/16 Voriconazole* (Voriconazole*) 200 Mg Tablet, 200 MG PO BID for 11 Days, TAB Prov:DENAE CLARKE 10/10/16 Hydrocodone Bit-Acetaminophen (Hydrocodone Bit-APAP) 5-325MG Tablet, 1 TAB PO Q6H PRN for PAIN, #30 TAB Prov:DENAE CLARKE 10/10/16 Hydralazine Hcl* (Hydralazine Hcl*) 25 Mg Tab, 25 MG PO Q8 for 30 Days, TAB 1 Refill Prov:DENAE CLARKE 10/10/16 Fenofibrate Nanocrystallized* (Fenofibrate*) 48 Mg Tablet, 48 MG PO DAILY for 30 Days, TAB 1 Refill Prov:DENAE CLARKE 10/10/16 Docusate Sodium (Dok) 100 Mg Capsule, 100 MG PO BID for 30 Days, CAP Prov:DENAE CLARKE. 10/10/16 Allergies Allergies: Coded Allergies: No Known Allergy (Unverified , 02/14/19) PMhx/Soc Chronic recurrent back and flank pain, bilateral nephrolithiasis, diabetes me llitus, hypertension History of Surgery: Yes (RT KIDNEY STENT, C SECTION X2) Anesthesia Reaction: No Hx Neurological Disorder: No Hx Respiratory Disorders: No Hx Cardiac Disorders: Yes (HTN, CHOLESTEROL) Hx Psychiatric Problems: No Hx Miscellaneous Medical Probl: Yes (PRE-DIABETIC) Hx Alcohol Use: No Hx Substance Use: No Hx Tobacco Use: No Physical Exam Vitals Vital Signs Date Temp Pulse Resp B/P (MAP) Pulse Ox O2 O2 Flow FiO2 Time Delivery Rate 02/14/19 97.9 74 16 172/97 100 20:52 (122) Physical Exam Const: No acute distress, well-developed well-nourished, afebrile Resp: Clear to auscultation bilaterally Cardio: Regular rate and rhythm, no murmurs Skin: No petechiae or rashes, no hematomas, contusions, lacerations Ext: No cyanosis, or edema, distal pulses equal bilateral Neur: Awake and alert x3, no focal deficits or facial asymmetry, gait normal, strength 5/5 in upper lower extremities bilaterally Psych: Normal Mood and Affect Results 24 hrs Laboratory Tests Test 02/14/19 21:13 Troponin I < 0.012 ng/ml Current Medications Medications Dose Sig/Gloria Start Time Status Last (Trade) Ordered Route PRN Stop Time Admin Dose Reason Admin Ketorolac 30 mg ONCE STAT 02/14/19 DC 02/14/19 Tromethamine IM 21:25 21:40 (Toradol) 02/14/19 21:27 Procedures/MDM placed on cardiac catheterization technician rhythm strip revealed a sinus rhythm at about 80 bpm with upright P and T waves. Patient was afebrile EKG performed, read by me revealed a normal sinus rhythm 81 bpm, left axis deviation, narrow QRS complex, no concerning ST elevations or depressions noted Chest X-ray 1V Interpreted by me: Soft Tissue: No acute abnormalities Bones: No acute abnormalities Mediastinum/Cardiac Silhouette/Lungs: No acute abnormalities I administered Toradol 30 mg IM x1. Troponin was negative Differential diagnoses considered, included but not limited to acute coronary syndrome, pulmonary embolism, aortic dissection, abdominal aortic aneurysm, sepsis, stroke, meningitis, encephalitis, pneumonia, appendicitis, cholecystitis , bowel obstruction, pyelonephritis, nephrolithiasis, cystitis, as well as metabolic, hematologic, and electrolyte abnormalities. As well as abscess, cellulitis, fractures, and dislocations. Patient feels much better at this time, and vital signs are normal, symptoms have improved. I did give strict instructions to return to the ED if symptoms continue or worsen, patient will otherwise follow-up with primary care physician. Patient understood instructions and agreed to plan. Disclaimer: Inadvertent spelling and grammatical errors are likely due to EHR/dictation software use and do not reflect on the overall quality of patient care. Also, please note that the electronic time recorded on this note does not necessarily reflect the actual time of the patient encounter. Departure Diagnosis: Primary Impression: Back sprain Additional Impression: Muscle strain of left upper extremity Encounter type: initial encounter Qualified Codes: S46.912A - Strain of unspecified muscle, fascia and tendon at shoulder and upper arm level, left arm, initial encounter Condition: LYN Beaulieu MD Feb 14, 2019 21:07
[2019-02-14] MEDS ORDERED: KETOROLAC 30 MG INJ IM STA (21:25)
[2019-02-14] MEDS ORDERED: LOSA50TA14 PO (22:05)
[2019-02-14] MEDS ORDERED: CYCL10TA7 PO (22:49)
[2019-02-14] MEDS ORDERED: NAPR-985 PO (22:49)
[2019-02-14 23:00] VITALS: BP 128/93; PULSE 83; RESP 20
== END 2019-02-14 23:01 | disposition home or self-care (01) ==
LOC: E/R 20:49
DX: S23.3XXA Sprain of ligaments of thoracic spine, initial encounter (principal); I10 Essential (primary) hypertension; E11.9 Type 2 diabetes mellitus without complications; S46.912A Strain of unspecified muscle, fascia and tendon at shoulder and upper arm level, left arm, initial encounter; X58.XXXA Exposure to other specified factors, initial encounter; Y92.9 Unspecified place or not applicable
CPT/HCPCS: 36415; 71045; 84484; 93005; 96372; J1885; Z7502